=== PATIENT | female | born 1945 | race African-American/Black ===

== ENCOUNTER 2017-02-21 22:22 | Inpatient (IN) | payer MEDICARE, BC ==
[~2017-02-21] VITALS: Ht 160 cm; Wt 65.1 kg
[~2017-02-21 22:22] MED LIST: AMLO5TAB2 PO; ASPI81TA44 PO; ATEN25TA PO; Aspirin PO; B CO1TAB30 PO; CALC300T5 PO; CALC667C6 PO; CIPR250T30 PO; CRESTOR5 MG PO; DARB60DI SQ; DICL112S2 TP; FERR325T3 PO; FLUC100T4 PO; FOLI0.8T32 PO; FURO-68 PO; GABA-585 PO; HEPA1000 IJ; HYDR-2678 PO; HYDR100T24 PO; HYDR20VI5 IJ; HYDR500C PO; HYDR500C3 PO; INSU100V10 IJ; LEVO100T5 PO; LEVO150T PO; LEVO150T5 PO; LEVO25TA2 PO; URSO300C3 PO
--- NOTE | 2017-02-21 22:46 | PHYS DOC ---
Past Medical History Past Medical History: CVA, Diabetes-Type II, High Cholesterol, Hypertension, Renal Failure, Sinusitis Past Surgical History: Cholecystectomy, Hysterectomy Additional Past Surgical Histo: Dialysis Right chest Alcohol Use: None Drug Use: None Adult General Chief Complaint Chief Complaint: FATIGUE HPI HPI Patient is a 71 year old female who presents with complaint of headache and generalized weakness. The patient states that her symptoms started shortly after dialysis. Patient states that she has history of end-stage renal disease and has dialysis on Thursday, , and Thursday. Patient received her fall treatment with dialysis. Patient states that towards the end of dialysis she started to get fever and she was also noted to have a drop in her blood pressure. Patient states that currently her headache has improved but she is still feeling generalized weakness. Patient denies any fever, chest pain, shortness of breath, productive cough. Patient states that she is having dull abdominal pain which she states she has had before after dialysis. Review of Systems Review of Systems Constitutional: Denies fever or chills [] Eyes: Denies change in visual acuity, redness, or eye pain [] HENT: Denies nasal congestion or sore throat [] Respiratory: Denies cough or shortness of breath [] Cardiovascular: Denies chest pain or edema [] GI: Abdominal pain, nausea, denies vomiting, bloody stools or diarrhea [] : Denies dysuria or hematuria [] Musculoskeletal: Myalgia [] Integument: Denies rash or skin lesions [] Neurologic: Headache, denies focal weakness or sensory changes [] Current Medications Current Medications Current Medications Medications (Trade) Dose Ordered Sig/[facility] Start Time Stop Time Status Last Admin Dose Admin Acetaminophen (Tylenol) 650 mg 1X ONCE 02/21/17 23:00 02/21/17 23:01 DC 02/21/17 23:00 650 MG Ondansetron HCl (Zofran) 4 mg 1X ONCE 02/21/17 23:00 02/21/17 23:01 DC 02/21/17 22:59 4 MG Sodium Chloride (Iv Sodium Chloride 0.9% 500ml Bag) 250 ml @ 500 mls/hr 1X ONCE 02/21/17 23:00 02/21/17 23:29 02/21/17 22:53 500 MLS/HR Allergies Allergies Allergies Coded Allergies Type Severity Reaction Last Updated Verified Penicillins Allergy Intermediate SEVERE ITCHING-NO HIVES 08/25/16 No Sulfa (Sulfonamide Antibiotics) Allergy Intermediate 08/25/16 Yes Uncoded Allergies Type Severity Reaction Last Updated Verified surgical silvia Allergy Intermediate Rash 10/14/15 Physical Exam Physical Exam Constitutional: Alert, afebrile, appears in mild to moderate discomfort. [] HENT: Normocephalic, atraumatic, bilateral external ears normal, oropharynx moist, no oral exudates, nose normal. [] Eyes: PERRLA, EOMI, conjunctiva normal, no discharge. [] Neck: Normal range of motion, no tenderness, supple, no stridor. [] Cardiovascular:Heart rate regular rhythm, no murmur [] Lungs & Thorax: Bilateral breath sounds clear to auscultation [] Abdomen: Bowel sounds normal, soft, no tenderness, no masses, no pulsatile masses. [] Skin: Warm, dry, no erythema, no rash. [] Back: No tenderness, no CVA tenderness. [] Extremities: No tenderness, no cyanosis, no clubbing, ROM intact, no edema. [] Neurologic: Alert and oriented X 3, normal motor function, normal sensory function, no focal deficits noted. [] Current Patient Data Vital Signs Vital Signs Date Time Temp Pulse Resp B/P Pulse Ox O2 Delivery O2 Flow Rate FiO2 02/21/17 23:01 85 16 100/53 98 Room Air 02/21/17 22:30 97.5 97.5 Lab Values Laboratory Tests Test 02/21/17 22:34 White Blood Count 9.5x10^3/uL (4.0-11.0) Red Blood Count 3.60x10^6/uL (3.50-5.40) Hemoglobin 12.2g/dL (12.0-15.5) Hematocrit 38.3% (36.0-47.0) Mean Corpuscular Volume 107fL (79-100) H Mean Corpuscular Hemoglobin 34pg (25-35) Mean Corpuscular Hemoglobin Concent 32g/dL (31-37) Red Cell Distribution Width 15.4% (11.5-14.5) H Platelet Count 436x10^3/uL (140-400) H Neutrophils (%) (Auto) 69% (31-73) Lymphocytes (%) (Auto) 17% (24-48) L Monocytes (%) (Auto) 8% (0-9) Eosinophils (%) (Auto) 6% (0-3) H Basophils (%) (Auto) 1% (0-3) Neutrophils # (Auto) 6.6x10^3uL (1.8-7.7) Lymphocytes # (Auto) 1.6x10^3/uL (1.0-4.8) Monocytes # (Auto) 0.7x10^3/uL (0.0-1.1) Eosinophils # (Auto) 0.6x10^3/uL (0.0-0.7) Basophils # (Auto) 0.1x10^3/uL (0.0-0.2) Sodium Level 132mmol/L (136-145) L Potassium Level 3.1mmol/L (3.5-5.1) L Chloride Level 93mmol/L (98-107) L Carbon Dioxide Level 24mmol/L (21-32) Anion Gap 15 (6-14) H Blood Urea Nitrogen 25mg/dL (7-20) H Creatinine 4.0mg/dL (0.6-1.0) H Estimated GFR (Cockcroft-Gault) 13.3 BUN/Creatinine Ratio 6 (6-20) Glucose Level 161mg/dL (70-99) H Calcium Level 8.3mg/dL (8.5-10.1) L Magnesium Level 1.7mg/dL (1.8-2.4) L Total Bilirubin 0.6mg/dL (0.2-1.0) Aspartate Amino Transferase (AST) 17U/L (15-37) Alanine Aminotransferase (ALT) 9U/L (14-59) L Alkaline Phosphatase 76U/L (46-116) Total Protein 7.4g/dL (6.4-8.2) Albumin 3.5g/dL (3.4-5.0) Albumin/Globulin Ratio 0.9 (1.0-1.7) L Laboratory Tests 02/21/17 22:34 Laboratory Tests 02/21/17 22:34 EKG EKG Interpreted by me: Heart rate 90, sinus rhythm, right bundle branch block, no acute ST/T-wave abnormalities present [] Radiology/Procedures Radiology/Procedures Not performed [] Course & Med Decision Making Course & Med Decision Making Pertinent Labs and Imaging studies reviewed. (See chart for details) The patient was given 250 mL of IV normal saline. Patient's lab work unremarkable at this time. Patient's symptoms likely due to dehydration secondary to dialysis. I recommended that the patient contact her screwmaker automatic, Dr. Botello, on Thursday as patient has been having multiple episodes of similar symptoms during and after dialysis. Recommended that the patient return to emergency department for any worsening symptoms. Patient was understanding and in agreement with treatment plan. Dragon Disclaimer Dragon Disclaimer This electronic medical record was generated, in whole or in part, using a voice recognition dictation system. Departure Departure Impression: Primary Impression: Dehydration Additional Impression: ESRD (end stage renal disease) on dialysis Disposition: HOME, SELF-CARE Condition: IMPROVED Referrals: EVER GARNER MD (PCP) Patient Instructions: Dehydration, Adult Additional Instructions: Call your screwmaker automatic, Dr. Botello, in 2 days to discuss your dialysis regimen. Return to the emergency department for any worsening symptoms. Problem Qualifiers SUZE YBARRA MD Feb 21, 2017 22:46
[2017-02-21 23:00] LABS: BASO # 0.1 x10^3/uL (0.0-0.2); BASO % 1 % (0-3); EOS % 6 % (0-3); HEMATOCRIT 38.3 % (36.0-47.0); HEMOGLOBIN 12.2 g/dL (12.0-15.5); LYMPH # 1.6 x10^3/uL (1.0-4.8); LYMPH % 17 % (24-48); MEAN CORPUSCULAR HEMOGLOBIN 34 pg (25-35); MEAN CORPUSCULAR HGB CONC 32 g/dL (31-37); MEAN CORPUSCULAR VOLUME 107 fL (79-100); MONO % 8 % (0-9); NEUT % 69 % (31-73); PLATELET COUNT 436 x10^3/uL (140-400); RED CELL DISTRIBUTION WIDTH 15.4 % (11.5-14.5); WHITE BLOOD COUNT 9.5 x10^3/uL (4.0-11.0)
[2017-02-21] MEDS ORDERED: ACETAMINOPHEN 325 MG TABLET. PO ONE (23:00)
[2017-02-21] MEDS ORDERED: ONDANSETRON PF 4 MG/2 ML VIAL. IV ONE (23:00)
[2017-02-21] MEDS ORDERED: IV NORMAL SALINE 500ML BAG 250 ML IV ONE (23:00)
[2017-02-21 23:11] LABS: CALCIUM 8.3 mg/dL (8.5-10.1); GFR 13.3; POTASSIUM 3.1 mmol/L (3.5-5.1)
[2017-02-21 23:16] LABS: ALBUMIN 3.5 g/dL (3.4-5.0); ALBUMIN/GLOBULIN RATIO 0.9 (1.0-1.7); MAGNESIUM 1.7 mg/dL (1.8-2.4); TOTAL BILIRUBIN 0.6 mg/dL (0.2-1.0); TOTAL PROTEIN 7.4 g/dL (6.4-8.2)
[2017-02-22] VITALS (8 sets, daily range): BP systolic 89–113; BP diastolic 40–55
[2017-02-22 00:04] LABS: PLT ESTIMATE INCREASED (ADEQUATE)
[2017-02-22] MEDS ORDERED: IV NORMAL SALINE 500ML BAG 250 ML IV ONE (00:15)
--- NOTE | 2017-02-22 00:23 | ACF ---
Admit Criteria Forms Admit Criteria Forms Admit Criteria Forms RENAL FAILURE, CHRONIC Clinical Indications for Admission to Inpatient Care (Place 'X' for any and all applicable criteria): Admission is indicated for ANY ONE of the following (1)(2)(3)(4)(5): [X]I. Inpatient admission required rather than observation care (Use Renal Failure, Chronic: Observation Care Criteria as appropriate) because of ANY ONE of the following: [ ]a) Volume overload or uremic symptoms (eg, clinically significant pulmonary edema, hypertension, pericarditis, acidosis) too severe for, or not responsive (eg, for over 24 hours) to emergency department or observation care dialysis or treatment regimen (11) [X]b) Hemodynamic instability that is severe or persistent [ ]c) Respiratory distress that is severe or persistent (11) [ ]d) Clinically significant electrolyte abnormality that requires inpatient care (eg,hyperkalemia with severe ECG findings)[B] [ ]e) Supplement O2 or respiratory therapy for over 24hrs that is performable only in acute inpatient setting [ ]f) Continuous IV infusion of anticoagulation, platelet inhibitor, vasoactive, or Antiarrhythmic medication (15), [ ]g) Pulmonary artery catheter monitoring [ ]h) Temporary pacemaker placement [ ]i) Emergent pericardiocentesis [ ]j) Other condition, treatment or monitoring requiring inpatient admission [ ]II. Unexplained syncope [A] [ ]III. Recurrent seizures [ ]IV. Severe infections not treatable in outpatient setting (eg, peritonitis)(9 ) [ ]V. Cardiac arrhythmias of immediate concern [ ]. Encephalopathy [ ]VII.Bleeding abnormalities (eg, platelet dysfunction) with active (eg, gastrointestinal) bleeding Extended stay beyond goal length of stay may be needed for (3)(4)(35)(36): [ ]a) Continuing uremic complications [ ]b) Comorbidities or complications The original [employer] content created by [employer] has been revised. The portions of the content which have been revised are identified through the use of italic text or in bold, and [facility] [employer] has neither reviewed nor approved the modified material. All other unmodified content is copyright [employer]. Please see references footnoted in the original [employer] edition 2016 BALWINDER COX Feb 22, 2017 00:23
[2017-02-22] MEDS ORDERED: FENTANYL PF 100 MCG/2 ML VIAL. IV PRN (00:30)
[2017-02-22] MEDS ORDERED: ACETAMINOPHEN 325 MG TABLET. PO PRN (00:30)
[2017-02-22] MEDS: ONDANSETRON PF 4 MG/2 ML VIAL. IV PRN ×2 (01:54→09:39)
[2017-02-22] MEDS: IV NORMAL SALINE 1000ML BAG 1,000 ML IV SCH ×2 (01:55→16:11)
[2017-02-22] MEDS ORDERED: HYDR500C3 PO (04:13)
[2017-02-22] MEDS ORDERED: IV NORMAL SALINE 250ML 250 ML IV ONE (08:15)
[2017-02-22] MEDS ORDERED: HYDROXYUREA 500 MG CAPSULE PO SCH (09:00)
[2017-02-22] MEDS: FOLIC/VIT B COMP W-C (RENAL) TABLET. PO SCH (09:37)
[2017-02-22] MEDS: ASPIRIN 81 MG TAB.CHEW PO SCH (09:38)
--- NOTE | 2017-02-22 10:08 | PDOC ---
Provider Note Provider Note Patient seen. History and Physical dictated. See dictation# [id number] SAVANA MILLAN MD Feb 22, 2017 10:08
--- NOTE | 2017-02-22 11:27 | EKG ---
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
--- NOTE | 2017-02-22 11:30 | HP ---
ADMIT DATE: ADMITTING PHYSICIAN: Dr. Gio Up. REASON FOR ADMISSION: Headaches, dizziness, nausea and weakness. HISTORY OF PRESENT ILLNESS: This is a 71-year-old -[place] female, who is on hemodialysis Thursday, and Thursday, has been recently having problems with dizziness and low blood pressure with dialysis. Sometimes, they have given her fluids. She was also supposed to see a global analytics head as an outpatient. Yesterday, her symptoms got worse, she came to the Emergency Room. In the Emergency Room, blood pressure was initially 100/53 and she was given IV fluids. Subsequently, her blood pressure dropped in 60s systolic and she required admission with continuation of IV normal saline. REVIEW OF SYSTEMS: At present time, the patient is also complaining of nausea. She has occasional cough and congestion. She denies any fever, chills, diarrhea or constipation. She has increased weakness and dizziness, especially with dialysis. She states that even on nondialysis days, she has some dizziness and low blood pressure at times, but with the dialysis and gets much worse. Other systems reviewed and are negative. She denies any fevers, chills, dysuria, diarrhea or swelling of the legs at this time. Other systems reviewed and are negative. She does admit to nausea, no vomiting. She gets dry heaves. PAST MEDICAL HISTORY: The patient has history of old cerebrovascular accident, diabetes mellitus type 2, hypertension, hyperlipidemia, end-stage renal disease on hemodialysis, history of thrombocytosis and she is on Hydrea for the same. PAST SURGICAL HISTORY: She had hysterectomy and gallbladder surgery. She also has ____ procedures for dialysis. She also had angioplasty and stent placement in the left leg for peripheral vascular disease. MEDICATIONS: Reviewed, please refer to the orders. ALLERGIES: THE PATIENT IS ALLERGIC TO PENICILLIN, SULFA AND SURGICAL SARAH BETH. SOCIAL HISTORY: History of smoking in the past. She has not been smoking recently. No history of alcoholism or drug abuse. She lives with her family. FAMILY HISTORY: Positive for diabetes, hypertension, heart disease, strokes and also kidney problems. PHYSICAL EXAMINATION: VITAL SIGNS: Blood pressure 89/43 mmHg, temperature 98.4, pulse 79 per minute, respirations 18 per minute. GENERAL: The patient is alert, oriented, not in any acute distress. She appears to be chronically ill. EYES: Pupils reacting to light. Conjunctivae pale. Sclerae muddy. HENT: Mild congestion of throat. SKIN: Warm and dry. There is no cyanosis. NECK: Supple. JVP normal. No thyromegaly. Trachea midline. LUNGS: Decreased breath sounds at bases. No rales. CARDIOVASCULAR: S1, S2 regular. ABDOMEN: Soft, nontender, no guarding, no rigidity. Bowel sounds present. The patient is having dry heaves. EXTREMITIES: No edema. CENTRAL NERVOUS SYSTEM: Generalized weakness. LABORATORY FINDINGS: WBC count 9.5, hemoglobin 12.2, platelet count is 436,000. Sodium 132, potassium 3.1, BUN 25, creatinine 4.0. Glucose 161, magnesium 1.7, albumin 3.5. IMPRESSION: 1. Acute hypotension. 2. End-stage renal disease, on hemodialysis. 3. Diabetes mellitus type 2. 4. Nausea. 5. Hypertension. 6. Thrombocytosis. 7. Hyperlipidemia. PLAN: I will give her extra IV fluids this morning in addition to the continuing of IV drip, because of recurrent hypotension. Consultation has been obtained with Dr. Martinez for nephrology evaluation and management. Consultation has also been obtained with Dr. Parmar for persistent hypotension. I will hold her blood pressure medications including amlodipine and hydralazine. Continue other medications. We will verify the dose of Hydrea. For details, please refer to the orders. SAVANA MILLAN MD DR: AFSHIN/kimberli JOB#: [id number] / [id number]
[2017-02-22] MEDS: LEVOTHYROXINE 150 MCG TABLET PO SCH (11:33)
--- NOTE | 2017-02-22 11:44 | RAD ---
Indication cough. PA and lateral views of the chest were obtained and are compared to a single view examination 04/06/2015. The heart and pulmonary vessels appear normal. The lungs are clear. There is no pleural fluid or pneumothorax. IMPRESSION: No acute or focal process is seen in the chest
--- NOTE | 2017-02-22 13:30 | CONS ---
DATE OF CONSULTATION: 02/22/2017 REASON FOR CONSULTATION: Hypotension. HISTORY OF PRESENT ILLNESS: The patient is a pleasant 71-year-old woman with a past medical history as noted below, who presents to the hospital in the setting of hypotension. She reports that over the course of the last 3 months or so, she has had hypotension on dialysis and has struggled with maintaining her dialysis runs. She denies any associated chest pain, but does report that in the last 2-4 weeks or so, she has had some exertional dyspnea. She denies any syncope or palpitations. Upon arrival to the ER from her dialysis session, her blood pressures were 60s/40s and she was given intravenous fluids. In speaking with the patient, she reports that over the course of the last 2 years or so, she has lost approximately 150 pounds after a thyroid surgery. She also has had decreased appetite and has not been eating and drinking well. She denies any prior cardiovascular history and remotely thinks that she had a normal cardiac stress test. PAST MEDICAL HISTORY: 1. End-stage renal disease ____ 2013. 2. Hypertension in the past. 3. Dyslipidemia. 4. Peripheral vascular disease, status post left lower extremity re-vascularization via a bypass surgery. CARDIOVASCULAR MEDICATIONS: At home: 1. Amlodipine 5 mg daily. 2. Hydralazine 200 mg daily. ALLERGIES: PENICILLIN, SULFA, AND SURGICAL SARAH BETH. SOCIAL HISTORY: The patient denies any alcohol, tobacco, or illicit drug use. REVIEW OF SYSTEMS: Negative for 10 out of 14 systems reviewed, unless otherwise mentioned above in HPI. PHYSICAL EXAMINATION: VITAL SIGNS: Afebrile, heart rate 83, respiratory rate 18, blood pressure 104/41, and pulse ox 100% on room air. GENERAL: She is alert and oriented, in no acute distress. HEAD AND NECK: Unremarkable. HEART: Regular rate and rhythm without any murmurs, rubs, or gallops. LUNGS: Clear to auscultation bilaterally, anteriorly and posteriorly. ABDOMEN: Soft, nontender, and nondistended. EXTREMITIES: No clubbing, cyanosis, or edema. A 2+ radial and dorsalis pedis pulses. NEUROLOGIC: No focal deficits. PSYCHIATRIC: Normal mood and affect. DIAGNOSTIC STUDIES: Labs: Hemoglobin 12.2, platelets 436, BUN 25, potassium 3.1, and cardiac enzymes negative x 2. Chest x-ray is unremarkable. Echocardiogram from 2 years ago reveals normal LV systolic function. No significant valvular heart disease noted. IMPRESSION: 1. Hypotension, likely resultant due to weight loss of over 100 pounds and poor appetite. 2. End-stage renal disease. 3. Diabetes and dyslipidemia. RECOMMENDATIONS: 1. Agree with discontinuation of current antihypertensives. Suspect that she may ultimately need some antihypertensives on non-dialysis days when her appetite returns. 2. We will obtain an echocardiogram as already ordered by Dr. Botello. From a cardiovascular standpoint, we will continue supportive care. No clear indication of angina at this time, and we will plan for perhaps an outpatient stress test given her recent dyspnea. If her echocardiogram demonstrates any significant abnormalities, then we will consider inpatient stress testing. Thank you for this consultation. SANDEE BRASWELL MD DR: AMADEO/kimberli JOB#: [id number] / [id number] PAULINE
--- NOTE | 2017-02-22 21:42 | PDOC2 ---
CONSULT Date of Consult Date of Consult DATE: 02/22/17 TIME: 21:40 Past Medical History Cardiovascular: HTN, Hyperlipidemia CENTRAL NERVOUS SYSTEM: CVA Heme/Onc: Anemia NOS Renal/: Chronic renal failure Endocrine: Diabetes Past Surgical History Past Surgical History: Cholecystectomy, Hysterectomy, Other Social History ALCOHOL: none Lives: with Family Current Problem List Problem List Problems Medical Problems: (1) Dehydration Status: Acute (2) ESRD (end stage renal disease) on dialysis Status: Acute (3) Hypotension Status: Acute Current Medications Current Medications Current Medications Sodium Chloride (Iv Sodium Chloride 0.9% 500ml Bag) 250 ml @ 500 mls/hr 1X ONCE IV Last administered on 02/21/17 22:53; Start 02/21/17 at 23:00; Stop at 23:29; Status DC Ondansetron HCl (Zofran) 4 mg 1X ONCE IV Last administered on 02/21/17 22:59 ; Start 02/21/17 at 23:00; Stop 02/21/17 at 23:01; Status DC Acetaminophen 650 mg 650 mg 1X ONCE PO Last administered on 02/21/17 23:00; Start 02/21/17 at 23:00; Stop 02/21/17 at 23:01; Status DC Sodium Chloride (Iv Sodium Chloride 0.9% 500ml Bag) 250 ml @ 500 mls/hr 1X ONCE IV Last administered on 02/22/17 00:05; Start 02/22/17 at 00:15; Stop at 00:44; Status DC Ondansetron HCl (Zofran) 4 mg PRN Q8HRS PRN IV NAUSEA/VOMITING Last administered on 02/22/17 09:39; Start 02/22/17 at 00:30; Stop 02/23/17 at 00:29 Fentanyl Citrate 50 mcg 50 mcg PRN Q2HR PRN IV PAIN; Start 02/22/17 at 00:30; Stop 02/23/17 at 00:29 Sodium Chloride (Iv Sodium Chloride 0.9% 1000ml Bag) 1,000 ml @ 60 mls/hr [id number] IV Last administered on 02/22/17 16:11; Start 02/22/17 at 00:30; Stop 02/23/17 at 00:29 Acetaminophen 650 mg 650 mg PRN Q4HRS PRN PO FEVER; Start 02/22/17 at 00:30; Stop 02/23/17 at 00:29 Sodium Chloride (Iv Sodium Chloride 0.9% 250ml) 250 ml @ 250 mls/hr 1X ONCE IV Last administered on 02/22/17 08:15; Start 02/22/17 at 08:15; Stop at 09:14; Status DC Aspirin (Children'S Aspirin) 81 mg DAILY08 PO Last administered on 02/22/17 09 :38; Start 02/22/17 at 09:00 Vitamin B Complex/ Vitamin C (Nephro-Jose) 1 tab DAILY PO Last administered on 02/22/17 09:37; Start 02/22/17 at 09:00 Hydroxyurea (Hydrea) 1,000 mg DAILY PO Last administered on 02/22/17 09:47; Start 02/22/17 at 09:00; Stop 02/22/17 at 11:18; Status DC Levothyroxine Sodium (Synthroid) 150 mcg DAILYAC PO Last administered on 11:33; Start 02/22/17 at 10:30 Hydroxyurea (Hydrea) 500 mg SuMoWeFr PO ; Start 02/23/17 at 09:00 Hydroxyurea (Hydrea) 1,000 mg QTUTHSA@09 PO ; Start 02/24/17 at 09:00 Hydroxyurea (Hydrea) 500 mg QSU@09 PO ; Start 03/01/17 at 09:00; Stop 03/01/17 at 09:00; Status DC Active Scripts Active Reported Hydroxyurea 500 Mg Capsule 1,000 Mg PO Hydroxyurea 500 Mg Capsule 500 Mg PO Hydralazine Hcl 100 Mg Tablet 200 Mg PO DAILY Tums (Calcium Carbonate) 300 Mg Tab.chew 300 Mg PO Children's Aspirin (Aspirin) 81 Mg Tab.chew 81 Mg PO Renal-Jose Tablet (Folic Acid/Vit Bcomp,C) 0.8 Mg Tablet 0.8 Mg PO Levothyroxine Sodium 150 Mcg Tablet 150 Mcg PO DAILYAC Amlodipine Besylate 5 Mg Tablet 5 Mg PO DAILY Allergies Allergies: Coded Allergies: Penicillins (Verified Allergy, Intermediate, SEVERE ITCHING-NO HIVES, 02/22) Can tolerate cefepime Sulfa (Sulfonamide Antibiotics) (Verified Allergy, Intermediate, 08/25/16) Uncoded Allergies: surgical silvia (Allergy, Intermediate, Rash, 10/14/15) rash Vitals VITALS Vital Signs Date Time Temp Pulse Resp B/P Pulse Ox O2 Delivery O2 Flow Rate FiO2 02/22/17 20:00 Room Air 02/22/17 19:05 97.8 83 18 98/50 97 97.8 Labs Labs Laboratory Tests Test 02/21/17 22:34 02/22/17 00:25 02/22/17 05:40 02/22/17 11:56 White Blood Count 9.5x10^3/uL (4.0-11.0) Red Blood Count 3.60x10^6/uL (3.50-5.40) Hemoglobin 12.2g/dL (12.0-15.5) Hematocrit 38.3% (36.0-47.0) Mean Corpuscular Volume 107fL (79-100) Mean Corpuscular Hemoglobin 34pg (25-35) Mean Corpuscular Hemoglobin Concent 32g/dL (31-37) Red Cell Distribution Width 15.4% (11.5-14.5) Platelet Count 436x10^3/uL (140-400) Neutrophils (%) (Auto) 69% (31-73) Lymphocytes (%) (Auto) 17% (24-48) Monocytes (%) (Auto) 8% (0-9) Eosinophils (%) (Auto) 6% (0-3) Basophils (%) (Auto) 1% (0-3) Neutrophils # (Auto) 6.6x10^3uL (1.8-7.7) Lymphocytes # (Auto) 1.6x10^3/uL (1.0-4.8) Monocytes # (Auto) 0.7x10^3/uL (0.0-1.1) Eosinophils # (Auto) 0.6x10^3/uL (0.0-0.7) Basophils # (Auto) 0.1x10^3/uL (0.0-0.2) Platelet Estimate Increased (ADEQUATE) Large Platelets Few Giant Platelets Few Macrocytosis Slight Sodium Level 132mmol/L (136-145) Potassium Level 3.1mmol/L (3.5-5.1) Chloride Level 93mmol/L (98-107) Carbon Dioxide Level 24mmol/L (21-32) Anion Gap 15 (6-14) Blood Urea Nitrogen 25mg/dL (7-20) Creatinine 4.0mg/dL (0.6-1.0) Estimated GFR (Cockcroft-Gault) 13.3 BUN/Creatinine Ratio 6 (6-20) Glucose Level 161mg/dL (70-99) Calcium Level 8.3mg/dL (8.5-10.1) Magnesium Level 1.7mg/dL (1.8-2.4) Total Bilirubin 0.6mg/dL (0.2-1.0) Aspartate Amino Transf (AST/SGOT) 17U/L (15-37) Alanine Aminotransferase (ALT/SGPT) 9U/L (14-59) Alkaline Phosphatase 76U/L (46-116) Total Protein 7.4g/dL (6.4-8.2) Albumin 3.5g/dL (3.4-5.0) Albumin/Globulin Ratio 0.9 (1.0-1.7) Troponin I Quantitative < 0.017ng/mL (0.000-0.055) < 0.017ng/mL (0.000-0.055) Glucose (Fingerstick) 111mg/dL (70-99) Test 02/22/17 12:30 02/22/17 17:05 Troponin I Quantitative < 0.017ng/mL (0.000-0.055) Glucose (Fingerstick) 85mg/dL (70-99) Laboratory Tests Test 02/21/17 22:34 02/22/17 00:25 02/22/17 05:40 02/22/17 11:56 White Blood Count 9.5x10^3/uL (4.0-11.0) Red Blood Count 3.60x10^6/uL (3.50-5.40) Hemoglobin 12.2g/dL (12.0-15.5) Hematocrit 38.3% (36.0-47.0) Mean Corpuscular Volume 107fL (79-100) Mean Corpuscular Hemoglobin 34pg (25-35) Mean Corpuscular Hemoglobin Concent 32g/dL (31-37) Red Cell Distribution Width 15.4% (11.5-14.5) Platelet Count 436x10^3/uL (140-400) Neutrophils (%) (Auto) 69% (31-73) Lymphocytes (%) (Auto) 17% (24-48) Monocytes (%) (Auto) 8% (0-9) Eosinophils (%) (Auto) 6% (0-3) Basophils (%) (Auto) 1% (0-3) Neutrophils # (Auto) 6.6x10^3uL (1.8-7.7) Lymphocytes # (Auto) 1.6x10^3/uL (1.0-4.8) Monocytes # (Auto) 0.7x10^3/uL (0.0-1.1) Eosinophils # (Auto) 0.6x10^3/uL (0.0-0.7) Basophils # (Auto) 0.1x10^3/uL (0.0-0.2) Platelet Estimate Increased (ADEQUATE) Large Platelets Few Giant Platelets Few Macrocytosis Slight Sodium Level 132mmol/L (136-145) Potassium Level 3.1mmol/L (3.5-5.1) Chloride Level 93mmol/L (98-107) Carbon Dioxide Level 24mmol/L (21-32) Anion Gap 15 (6-14) Blood Urea Nitrogen 25mg/dL (7-20) Creatinine 4.0mg/dL (0.6-1.0) Estimated GFR (Cockcroft-Gault) 13.3 BUN/Creatinine Ratio 6 (6-20) Glucose Level 161mg/dL (70-99) Calcium Level 8.3mg/dL (8.5-10.1) Magnesium Level 1.7mg/dL (1.8-2.4) Total Bilirubin 0.6mg/dL (0.2-1.0) Aspartate Amino Transf (AST/SGOT) 17U/L (15-37) Alanine Aminotransferase (ALT/SGPT) 9U/L (14-59) Alkaline Phosphatase 76U/L (46-116) Total Protein 7.4g/dL (6.4-8.2) Albumin 3.5g/dL (3.4-5.0) Albumin/Globulin Ratio 0.9 (1.0-1.7) Troponin I Quantitative < 0.017ng/mL (0.000-0.055) < 0.017ng/mL (0.000-0.055) Glucose (Fingerstick) 111mg/dL (70-99) Test 02/22/17 12:30 02/22/17 17:05 Troponin I Quantitative < 0.017ng/mL (0.000-0.055) Glucose (Fingerstick) 85mg/dL (70-99) Assessment/Plan Assessment/Plan RENAL CONSULT / DAQUAN Dictated. ESRD HYPOTENSION WEAKNESS> ECHO Cardiology eval. ? adrenal issues. Check Cortisol levels. MIDODRINE. Adjust HD time and dr weight. HD per schedule TTS. Thank you. BEN BUTT MD Feb 22, 2017 21:42
[2017-02-23 02:45] VITALS: BP 102/51
[2017-02-23 04:18] LABS: BASO # 0.1 x10^3/uL (0.0-0.2); BASO % 1 % (0-3); EOS % 8 % (0-3); HEMATOCRIT 31.3 % (36.0-47.0); HEMOGLOBIN 10.1 g/dL (12.0-15.5); LYMPH # 2.3 x10^3/uL (1.0-4.8); LYMPH % 28 % (24-48); MEAN CORPUSCULAR HEMOGLOBIN 34 pg (25-35); MEAN CORPUSCULAR HGB CONC 32 g/dL (31-37); MEAN CORPUSCULAR VOLUME 106 fL (79-100); MONO % 6 % (0-9); NEUT % 57 % (31-73); PLATELET COUNT 359 x10^3/uL (140-400); RED BLOOD COUNT 2.97 x10^6/uL (3.50-5.40); RED CELL DISTRIBUTION WIDTH 15.7 % (11.5-14.5); WHITE BLOOD COUNT 8.3 x10^3/uL (4.0-11.0)
[2017-02-23 04:46] LABS: ALBUMIN 2.5 g/dL (3.4-5.0); ALBUMIN/GLOBULIN RATIO 0.8 (1.0-1.7); CALCIUM 7.2 mg/dL (8.5-10.1); CREATININE 6.2 mg/dL (0.6-1.0); TOTAL BILIRUBIN 0.4 mg/dL (0.2-1.0); TOTAL PROTEIN 5.7 g/dL (6.4-8.2)
[2017-02-23] MEDS: LEVOTHYROXINE 150 MCG TABLET PO SCH (06:37)
[2017-02-23] MEDS ORDERED: MIDODRINE 2.5 MG TABLET PO SCH (07:00)
[2017-02-23 07:15] VITALS: BP 123/53
[2017-02-23] MEDS: ASPIRIN 81 MG TAB.CHEW PO SCH (07:42)
[2017-02-23] MEDS: FOLIC/VIT B COMP W-C (RENAL) TABLET. PO SCH (07:42)
[2017-02-23] MEDS ORDERED: HYDROXYUREA 500 MG CAPSULE PO SCH (09:00)
--- NOTE | 2017-02-23 10:08 | PDOC ---
PROGRESS NOTES Subjective Subjective pt feeling better Objective Objective Vital Signs Date Time Temp Pulse Resp B/P Pulse Ox O2 Delivery O2 Flow Rate FiO2 02/23/17 08:00 Room Air 02/23/17 07:15 97.5 81 18 123/53 99 97.5 Intake and Output 02/23/17 07:00 Intake Total 2630 ml Balance 2630 ml Intake Oral 2630 ml # Voids 4 Physical Exam Abdomen: Normal bowel sounds, Soft Heart: Regular rate, Normal S1, Normal S2 Extremities: No edema General: Oriented X3 HEENT: Atraumatic Lungs: Clear to auscultation MUSCULOSKELETAL: No deformity, No swelling Neck: Supple Neuro: Normal speech Psych/Mental Status: Mood NL Skin: No rashes Diagnosis Problem List Problems Medical Problems: (1) Dehydration Status: Acute (2) ESRD (end stage renal disease) on dialysis Status: Acute (3) Hypotension Status: Acute Assessment Assessment Problems Medical Problems: (1) Dehydration Status: Acute (2) ESRD (end stage renal disease) on dialysis Status: Acute (3) Hypotension Status: Acute IMPRESSION: 1. Acute hypotension resolved. 2. End-stage renal disease, on hemodialysis. 3. Diabetes mellitus type 2. 4. Nausea. 5. Hypertension. 6. Thrombocytosis. 7. Hyperlipidemia. PLAN: d/c iv fluids echo today ?stress test. pt/rehab. labs reviewed ,ok. I will give her extra IV fluids this morning in addition to the continuing of IV drip, because of recurrent hypotension. Consultation has been obtained with Dr. Martinez for nephrology evaluation and management. Consultation has also been obtained with Dr. Parmar for persistent hypotension. I will hold her blood pressure medications including amlodipine and hydralazine. Continue other medications. We will verify the dose of Hydrea. For details, please refer to the orders. Problems: Plan Plan of Care Problems Medical Problems: (1) Dehydration Status: Acute (2) ESRD (end stage renal disease) on dialysis Status: Acute (3) Hypotension Status: Acute Comment Review of Relevant I have reviewed the following items stormy (where applicable) has been applied. Labs Laboratory Tests Test 02/22/17 11:56 02/22/17 12:30 02/22/17 17:05 02/23/17 02:55 Glucose (Fingerstick) 111mg/dL (70-99) 85mg/dL (70-99) Troponin I Quantitative < 0.017ng/mL (0.000-0.055) White Blood Count 8.3x10^3/uL (4.0-11.0) Red Blood Count 2.97x10^6/uL (3.50-5.40) Hemoglobin 10.1g/dL (12.0-15.5) Hematocrit 31.3% (36.0-47.0) Mean Corpuscular Volume 106fL (79-100) Mean Corpuscular Hemoglobin 34pg (25-35) Mean Corpuscular Hemoglobin Concent 32g/dL (31-37) Red Cell Distribution Width 15.7% (11.5-14.5) Platelet Count 359x10^3/uL (140-400) Neutrophils (%) (Auto) 57% (31-73) Lymphocytes (%) (Auto) 28% (24-48) Monocytes (%) (Auto) 6% (0-9) Eosinophils (%) (Auto) 8% (0-3) Basophils (%) (Auto) 1% (0-3) Neutrophils # (Auto) 4.7x10^3uL (1.8-7.7) Lymphocytes # (Auto) 2.3x10^3/uL (1.0-4.8) Monocytes # (Auto) 0.5x10^3/uL (0.0-1.1) Eosinophils # (Auto) 0.7x10^3/uL (0.0-0.7) Basophils # (Auto) 0.1x10^3/uL (0.0-0.2) Sodium Level 138mmol/L (136-145) Potassium Level 4.0mmol/L (3.5-5.1) Chloride Level 102mmol/L (98-107) Carbon Dioxide Level 23mmol/L (21-32) Anion Gap 13 (6-14) Blood Urea Nitrogen 41mg/dL (7-20) Creatinine 6.2mg/dL (0.6-1.0) Estimated GFR (Cockcroft-Gault) 8.0 BUN/Creatinine Ratio 7 (6-20) Glucose Level 74mg/dL (70-99) Calcium Level 7.2mg/dL (8.5-10.1) Total Bilirubin 0.4mg/dL (0.2-1.0) Aspartate Amino Transf (AST/SGOT) 15U/L (15-37) Alanine Aminotransferase (ALT/SGPT) 9U/L (14-59) Alkaline Phosphatase 54U/L (46-116) Total Protein 5.7g/dL (6.4-8.2) Albumin 2.5g/dL (3.4-5.0) Albumin/Globulin Ratio 0.8 (1.0-1.7) Medications Current Medications Hydroxyurea (Hydrea) 500 mg QSU@09 PO ; Start 03/01/17 at 09:00; Stop 03/01/17 at 09:00; Status DC Hydroxyurea (Hydrea) 500 mg SuMoWeFr PO Last administered on 02/23/17 09:00; Start 02/23/17 at 09:00 Hydroxyurea (Hydrea) 1,000 mg QTUTHSA@09 PO ; Start 02/24/17 at 09:00 Levothyroxine Sodium (Synthroid) 150 mcg DAILYAC PO Last administered on 06:37; Start 02/22/17 at 10:30 Midodrine (Proamatine) 5 mg DAILY07 PO Last administered on 02/23/17 06:37; Start 02/23/17 at 07:00 Vitals/I & O Vital Sign - Last 24 Hours 02/22/17 02/22/17 02/22/17 02/22/17 10:40 15:05 19:05 20:00 Temp 97.8 97.8 Pulse 83 80 83 Resp 16 18 B/P 104/41 94/40 98/50 Pulse Ox 100 98 97 O2 Delivery Room Air Room Air 02/22/17 02/23/17 02/23/17 02/23/17 23:05 02:45 06:37 07:15 Temp 98.3 97.9 97.5 98.3 97.9 97.5 Pulse 74 80 80 81 Resp 18 18 18 B/P 100/48 102/51 102/51 123/53 Pulse Ox 100 98 99 O2 Delivery Room Air Room Air 02/23/17 08:00 O2 Delivery Room Air Intake and Output 02/22/17 02/22/17 02/23/17 15:00 23:00 07:00 Intake Total 470 ml 720 ml 1440 ml Balance 470 ml 720 ml 1440 ml EVER GARNER MD Feb 23, 2017 10:08
[2017-02-23 11:03] VITALS: BP 103/41
--- NOTE | 2017-02-23 12:01 | PDOC ---
CARDIO Progress Notes Date and Time Date of Service 02/23/2017 Time of Evaluation 1140 Subjective Subjective: No Chest Pain, No shortness of breath, No Palpitations, No Dizziness, Other (doing better today) Vitals Vitals Vital Signs Date Time Temp Pulse Resp B/P Pulse Ox O2 Delivery O2 Flow Rate FiO2 02/23/17 11:03 97.4 77 18 103/41 99 Room Air 97.4 Weight Weight [ ] Input and Output Intake and Output Intake and Output 02/23/17 07:00 Intake Total 2630 ml Balance 2630 ml Intake Oral 2630 ml # Voids 4 Laboratory Labs Laboratory Tests Test 02/22/17 11:56 02/22/17 12:30 02/22/17 17:05 02/23/17 02:55 Glucose (Fingerstick) 111mg/dL (70-99) 85mg/dL (70-99) Troponin I Quantitative < 0.017ng/mL (0.000-0.055) White Blood Count 8.3x10^3/uL (4.0-11.0) Red Blood Count 2.97x10^6/uL (3.50-5.40) Hemoglobin 10.1g/dL (12.0-15.5) Hematocrit 31.3% (36.0-47.0) Mean Corpuscular Volume 106fL (79-100) Mean Corpuscular Hemoglobin 34pg (25-35) Mean Corpuscular Hemoglobin Concent 32g/dL (31-37) Red Cell Distribution Width 15.7% (11.5-14.5) Platelet Count 359x10^3/uL (140-400) Neutrophils (%) (Auto) 57% (31-73) Lymphocytes (%) (Auto) 28% (24-48) Monocytes (%) (Auto) 6% (0-9) Eosinophils (%) (Auto) 8% (0-3) Basophils (%) (Auto) 1% (0-3) Neutrophils # (Auto) 4.7x10^3uL (1.8-7.7) Lymphocytes # (Auto) 2.3x10^3/uL (1.0-4.8) Monocytes # (Auto) 0.5x10^3/uL (0.0-1.1) Eosinophils # (Auto) 0.7x10^3/uL (0.0-0.7) Basophils # (Auto) 0.1x10^3/uL (0.0-0.2) Sodium Level 138mmol/L (136-145) Potassium Level 4.0mmol/L (3.5-5.1) Chloride Level 102mmol/L (98-107) Carbon Dioxide Level 23mmol/L (21-32) Anion Gap 13 (6-14) Blood Urea Nitrogen 41mg/dL (7-20) Creatinine 6.2mg/dL (0.6-1.0) Estimated GFR (Cockcroft-Gault) 8.0 BUN/Creatinine Ratio 7 (6-20) Glucose Level 74mg/dL (70-99) Calcium Level 7.2mg/dL (8.5-10.1) Total Bilirubin 0.4mg/dL (0.2-1.0) Aspartate Amino Transf (AST/SGOT) 15U/L (15-37) Alanine Aminotransferase (ALT/SGPT) 9U/L (14-59) Alkaline Phosphatase 54U/L (46-116) Total Protein 5.7g/dL (6.4-8.2) Albumin 2.5g/dL (3.4-5.0) Albumin/Globulin Ratio 0.8 (1.0-1.7) Test 02/23/17 10:25 Glucose (Fingerstick) 124mg/dL (70-99) Physical Exam HEENT: Neck Supple W Full Motion Chest: Symmetric LUNGS: Clear to Auscultation Heart: S1S2, RRR Abdomen: Soft N/T Extremities: No Calf Tenderness, Other (trace to 1+ bilateral LE edema) Neurology: alert, oriented, follow commands Assessment Assessment 1. Hypotension and dyspnea: Significant wt loss contributing. Continues at low end but asymptomatic, No SOA. 2. Autonomic dysregulation? 3. ESRD 4. DM2/HLP 5. Macrocytic Anemia: from 12.2 to 10.1 Hgb. 6. Hypothyroidism: last TSH? Synthroid at 150 mcg daily. Defer to PCP. Recommendations 1. Agree with midodrine. At this time would not be able to tolerate antiHTN will reevaluate need as outpt 2. Continue with dialysis TTHS per nephrology 3. If TTE is unremarkable for any significant changes then will consider for outpt stress testing for further risk stratification. 4. Replace Mg. SIL MARCH APRN Feb 23, 2017 12:01
--- NOTE | 2017-02-23 12:06 | PDOC ---
Renal-Progress Notes Subjective Notes Notes FEELS WELL NOW History of Present Illness Hx of present illness BETTER Vitals Vitals Vital Signs Date Time Temp Pulse Resp B/P Pulse Ox O2 Delivery O2 Flow Rate FiO2 02/23/17 11:03 97.4 77 18 103/41 99 Room Air 97.4 Weight Weight [ ] I.O. Intake and Output Intake and Output 02/23/17 07:00 Intake Total 2630 ml Balance 2630 ml Intake Oral 2630 ml # Voids 4 Labs Labs Laboratory Tests Test 02/22/17 12:30 02/22/17 17:05 02/23/17 02:55 02/23/17 10:25 Troponin I Quantitative < 0.017ng/mL (0.000-0.055) Glucose (Fingerstick) 85mg/dL (70-99) 124mg/dL (70-99) White Blood Count 8.3x10^3/uL (4.0-11.0) Red Blood Count 2.97x10^6/uL (3.50-5.40) Hemoglobin 10.1g/dL (12.0-15.5) Hematocrit 31.3% (36.0-47.0) Mean Corpuscular Volume 106fL (79-100) Mean Corpuscular Hemoglobin 34pg (25-35) Mean Corpuscular Hemoglobin Concent 32g/dL (31-37) Red Cell Distribution Width 15.7% (11.5-14.5) Platelet Count 359x10^3/uL (140-400) Neutrophils (%) (Auto) 57% (31-73) Lymphocytes (%) (Auto) 28% (24-48) Monocytes (%) (Auto) 6% (0-9) Eosinophils (%) (Auto) 8% (0-3) Basophils (%) (Auto) 1% (0-3) Neutrophils # (Auto) 4.7x10^3uL (1.8-7.7) Lymphocytes # (Auto) 2.3x10^3/uL (1.0-4.8) Monocytes # (Auto) 0.5x10^3/uL (0.0-1.1) Eosinophils # (Auto) 0.7x10^3/uL (0.0-0.7) Basophils # (Auto) 0.1x10^3/uL (0.0-0.2) Sodium Level 138mmol/L (136-145) Potassium Level 4.0mmol/L (3.5-5.1) Chloride Level 102mmol/L (98-107) Carbon Dioxide Level 23mmol/L (21-32) Anion Gap 13 (6-14) Blood Urea Nitrogen 41mg/dL (7-20) Creatinine 6.2mg/dL (0.6-1.0) Estimated GFR (Cockcroft-Gault) 8.0 BUN/Creatinine Ratio 7 (6-20) Glucose Level 74mg/dL (70-99) Calcium Level 7.2mg/dL (8.5-10.1) Total Bilirubin 0.4mg/dL (0.2-1.0) Aspartate Amino Transf (AST/SGOT) 15U/L (15-37) Alanine Aminotransferase (ALT/SGPT) 9U/L (14-59) Alkaline Phosphatase 54U/L (46-116) Total Protein 5.7g/dL (6.4-8.2) Albumin 2.5g/dL (3.4-5.0) Albumin/Globulin Ratio 0.8 (1.0-1.7) Review of Systems Constitutional: yes: alert, no symptom reported, oriented Eyes: Yes: no symptom reported Pulmonary: Yes no symptom reported Cardiovascular: Yes no symptom reported Gastrointestional: Yes: no symptom reported Genitourinary: Yes: no symptom reported Musculoskeletal: Yes: no symptom reported Physical Exam General Appearance: no apparent distress Skin: warm Respiratory: bilateral CTA Heart: S1S2 Abdomen: bowel sounds present Extremities: pulses present Neurology: alert, oriented Assessment Assessment IMP HYPOTENSION MILD HYPOVOLEMIA ESRD ANEMIA PLAN HD TOMORROW TRIAL OF MIDODRINE ARANESP WILL ADJUST DW WILL FOLLOW SINGH LOGAN MD Feb 23, 2017 12:06
[2017-02-23] MEDS: MIDODRINE 2.5 MG TABLET PO SCH ×2 (13:00→18:30)
--- NOTE | 2017-02-23 13:42 | CARD ---
APPROVED REPORT EXAM: Two-dimensional and M-mode echocardiogram with Doppler and color Doppler. Other Information Quality : Good INDICATION Chest Pain Hypotension 2D DIMENSIONS RVDd2.3 (2.9-3.5cm)Left Atrium(2D)3.4 (1.6-4.0cm) IVSd1.2 (0.7-1.1cm)Aortic Root(2D)2.9 (2.0-3.7cm) LVDd5.2 (3.9-5.9cm)LVOT Diameter2.0 (1.8-2.4cm) PWd1.1 (0.7-1.1cm)LVDs2.1 (2.5-4.0cm) FS (%) 30.0 %SV114.1 ml LVEF(%)60.0 (>50%) Aortic Valve AoV Peak Stefano.122.2cm/sAoV VTI22.7cm AO Peak GR.6.0mmHgLVOT Peak Stefano.121.0cm/s LVOT VTI 20.81cmAO Mean GR.3mmHg MARIANA (VMAX)3.10ht6TIO (VTI)2.88cm2 Mitral Valve MV E Uvtyzibo93.3cm/sMV DECEL [id number] MV A Fxzqfsre468.6cm/sMV [id number] E/A Ratio0.7MVA (PHT)1.80cm2 TDI E/Lateral E'9.8E/Medial E'9.4 Tricuspid Valve TR P. Zyhkcefr463oy/sRAP [id number] TR Peak Gr.[id number] Pulmonary Vein S1 Sgoiduom16.7cm/sD2 Omeyxjsh24.6cm/s PVa [id number] LEFT VENTRICLE The left ventricle is normal size. There is mild concentric left ventricular hypertrophy. The left ve ntricular systolic function is normal and the ejection fraction is within normal range. The Ejection Fraction is 55-60%. There is normal LV segmental wall motion. Transmitral Doppler flow pattern is Gra de I-abnormal relaxation pattern. RIGHT VENTRICLE The right ventricle is normal size. The right ventricular systolic function is normal. ATRIA The left atrium size is normal. The right atrium size is normal. The interatrial septum is intact wit h no evidence for an atrial septal defect or patent foramen ovale as noted on 2-D or Doppler imaging. AORTIC VALVE The aortic valve is calcified with restricted LCC. Doppler and Color Flow revealed no significant aor tic regurgitation. There is no significant aortic valvular stenosis. MITRAL VALVE The mitral valve is calcified but opens well. There is no evidence of mitral valve prolapse. There is no mitral valve stenosis. Doppler and Color-flow revealed mild mitral regurgitation. TRICUSPID VALVE The tricuspid valve is normal in structure and function. Doppler and Color Flow revealed trace tricus pid regurgitation. The PA pressure was estimated at 28 mmHg. There is no tricuspid valve stenosis. PULMONIC VALVE Doppler and Color Flow revealed mild pulmonic valvular regurgitation. There is no pulmonic valvular s tenosis. GREAT VESSELS The aortic root is normal in size. The ascending aorta is normal in size. The IVC is normal in size a nd collapses >50% with inspiration. PERICARDIAL EFFUSION There is no evidence of significant pericardial effusion. Critical Notification Critical Value: No <Conclusion> The left ventricular systolic function is normal and the ejection fraction is within normal range. Th e Ejection Fraction is 55-60%. There is normal LV segmental wall motion.
[2017-02-23] MEDS ORDERED: MAGNESIUM SULFATE 2GM 50 ML IV ONE (14:00)
[2017-02-23 15:20] VITALS: BP 103/27
[2017-02-23 19:25] VITALS: BP 111/48
[2017-02-23] MEDS ORDERED: DARBEPOETIN ALFA 60 MCG/0.3 ML DISP.SYRIN. SQ SCH (21:00)
[2017-02-23 23:05] VITALS: BP 99/37
[2017-02-24 03:05] VITALS: BP 115/48
[2017-02-24 04:41] LABS: ALBUMIN 2.4 g/dL (3.4-5.0); ALBUMIN/GLOBULIN RATIO 0.8 (1.0-1.7); CREATININE 7.6 mg/dL (0.6-1.0); GFR 6.3; POTASSIUM 4.4 mmol/L (3.5-5.1); TOTAL BILIRUBIN 0.4 mg/dL (0.2-1.0); TOTAL PROTEIN 5.5 g/dL (6.4-8.2)
[2017-02-24] MEDS: MIDODRINE 2.5 MG TABLET PO SCH ×2 (06:31→12:07)
[2017-02-24 07:28] VITALS: BP 122/50
[2017-02-24] MEDS: LEVOTHYROXINE 150 MCG TABLET PO SCH (07:30)
[2017-02-24] MEDS: ASPIRIN 81 MG TAB.CHEW PO SCH (08:00)
[2017-02-24] MEDS: FOLIC/VIT B COMP W-C (RENAL) TABLET. PO SCH (08:02)
[2017-02-24] MEDS ORDERED: HYDROXYUREA 500 MG CAPSULE PO SCH (09:00)
--- NOTE | 2017-02-24 10:32 | PDOC ---
PROGRESS NOTES Subjective Subjective seen in dialysis, no complaints Objective Objective Vital Signs Date Time Temp Pulse Resp B/P Pulse Ox O2 Delivery O2 Flow Rate FiO2 02/24/17 08:00 Room Air 02/24/17 07:28 97.9 71 16 122/50 99 97.9 Intake and Output 02/24/17 07:00 Intake Total 950 ml Balance 950 ml Intake Oral 950 ml # Voids 4 Physical Exam Abdomen: Normal bowel sounds, Soft Heart: Regular rate, Normal S1, Normal S2 Extremities: No edema General: Oriented X3 HEENT: Atraumatic Lungs: Clear to auscultation MUSCULOSKELETAL: No deformity, No swelling Neck: Supple Neuro: Normal speech Psych/Mental Status: Mood NL Skin: No rashes Diagnosis Problem List Problems Medical Problems: (1) Dehydration Status: Acute (2) ESRD (end stage renal disease) on dialysis Status: Acute (3) Hypotension Status: Acute Assessment Assessment Problems Medical Problems: (1) Dehydration Status: Acute (2) ESRD (end stage renal disease) on dialysis Status: Acute (3) Hypotension Status: Acute IMPRESSION: 1. Acute hypotension resolved. 2. End-stage renal disease, on hemodialysis. 3. Diabetes mellitus type 2. 4. Nausea. 5. Hypertension. 6. Thrombocytosis. 7. Hyperlipidemia. PLAN: d/c home today echo good LVF Gastric empting test today pt/rehab. labs reviewed ,ok. spoke with renal on amiodarone for hypotension. I will give her extra IV fluids this morning in addition to the continuing of IV drip, because of recurrent hypotension. Consultation has been obtained with Dr. Martinez for nephrology evaluation and management. Consultation has also been obtained with Dr. Parmar for persistent hypotension. I will hold her blood pressure medications including amlodipine and hydralazine. Continue other medications. We will verify the dose of Hydrea. For details, please refer to the orders. Problems: Plan Plan of Care Problems Medical Problems: (1) Dehydration Status: Acute (2) ESRD (end stage renal disease) on dialysis Status: Acute (3) Hypotension Status: Acute Comment Review of Relevant I have reviewed the following items stormy (where applicable) has been applied. Labs Laboratory Tests Test 02/23/17 16:50 02/23/17 20:42 02/24/17 02:55 Glucose (Fingerstick) 95mg/dL (70-99) 107mg/dL (70-99) Sodium Level 139mmol/L (136-145) Potassium Level 4.4mmol/L (3.5-5.1) Chloride Level 101mmol/L (98-107) Carbon Dioxide Level 22mmol/L (21-32) Anion Gap 16 (6-14) Blood Urea Nitrogen 53mg/dL (7-20) Creatinine 7.6mg/dL (0.6-1.0) Estimated GFR (Cockcroft-Gault) 6.3 BUN/Creatinine Ratio 7 (6-20) Glucose Level 70mg/dL (70-99) Calcium Level 7.0mg/dL (8.5-10.1) Total Bilirubin 0.4mg/dL (0.2-1.0) Aspartate Amino Transf (AST/SGOT) 14U/L (15-37) Alanine Aminotransferase (ALT/SGPT) 8U/L (14-59) Alkaline Phosphatase 53U/L (46-116) Total Protein 5.5g/dL (6.4-8.2) Albumin 2.4g/dL (3.4-5.0) Albumin/Globulin Ratio 0.8 (1.0-1.7) Medications Current Medications Darbepoetin Rl (Aranesp) 60 mcg WEEKLYHS SQ Last administered on 02/23/17 20 :40; Start 02/23/17 at 21:00 Hydroxyurea (Hydrea) 500 mg QSU@09 PO ; Start 03/01/17 at 09:00; Stop 03/01/17 at 09:00; Status DC Hydroxyurea (Hydrea) 1,000 mg QTUTHSA@09 PO ; Start 02/24/17 at 09:00 Magnesium Sulfate/ Dextrose (Magnesium Sulfate PREMIX 2GM) 50 ml @ 25 mls/hr 1X ONCE IV Last administered on 02/23/17 15:45; Start 02/23/17 at 14:00; Stop 02/23/17 at 15:59; Status DC Midodrine 2.5 mg 2.5 mg [id number] PO Last administered on 02/24/17 06:31; Start 02/23/17 at 13:00 Vitals/I & O Vital Sign - Last 24 Hours 02/23/17 02/23/17 02/23/17 02/23/17 11:03 13:00 15:20 18:30 Temp 97.4 97.9 97.4 97.9 Pulse 77 77 72 78 Resp 18 18 B/P 103/41 103/41 103/27 128/51 Pulse Ox 99 98 O2 Delivery Room Air Room Air 02/23/17 02/23/17 02/23/17 02/24/17 19:25 20:00 23:05 03:05 Temp 97.9 97.7 97.5 97.9 97.7 97.5 Pulse 78 72 68 Resp 18 18 16 B/P 111/48 99/37 115/48 Pulse Ox 98 96 98 O2 Delivery Room Air Room Air Room Air Room Air 02/24/17 02/24/17 02/24/17 06:31 07:28 08:00 Temp 97.9 97.9 Pulse 68 71 Resp 16 B/P 115/48 122/50 Pulse Ox 99 O2 Delivery Room Air Room Air Intake and Output 02/23/17 02/23/17 02/24/17 15:00 23:00 07:00 Intake Total 650 ml 300 ml Balance 650 ml 300 ml EVER GARNER MD Feb 24, 2017 10:32
[2017-02-24] MEDS ORDERED: MIDO2.5T PO (10:36)
[2017-02-24] MEDS ORDERED: DIALYSIS PATIENT. MC PRN ×2 (10:45)
--- NOTE | 2017-02-24 11:43 | PDOC ---
Renal-Progress Notes Subjective Notes Notes FEELING BETTER History of Present Illness Hx of present illness STABLE Vitals Vitals Vital Signs Date Time Temp Pulse Resp B/P Pulse Ox O2 Delivery O2 Flow Rate FiO2 02/24/17 08:00 Room Air 02/24/17 07:28 97.9 71 16 122/50 99 97.9 Weight Weight [ ] I.O. Intake and Output Intake and Output 02/24/17 07:00 Intake Total 950 ml Balance 950 ml Intake Oral 950 ml # Voids 4 Labs Labs Laboratory Tests Test 02/23/17 16:50 02/23/17 20:42 02/24/17 02:55 Glucose (Fingerstick) 95mg/dL (70-99) 107mg/dL (70-99) Sodium Level 139mmol/L (136-145) Potassium Level 4.4mmol/L (3.5-5.1) Chloride Level 101mmol/L (98-107) Carbon Dioxide Level 22mmol/L (21-32) Anion Gap 16 (6-14) Blood Urea Nitrogen 53mg/dL (7-20) Creatinine 7.6mg/dL (0.6-1.0) Estimated GFR (Cockcroft-Gault) 6.3 BUN/Creatinine Ratio 7 (6-20) Glucose Level 70mg/dL (70-99) Calcium Level 7.0mg/dL (8.5-10.1) Total Bilirubin 0.4mg/dL (0.2-1.0) Aspartate Amino Transf (AST/SGOT) 14U/L (15-37) Alanine Aminotransferase (ALT/SGPT) 8U/L (14-59) Alkaline Phosphatase 53U/L (46-116) Total Protein 5.5g/dL (6.4-8.2) Albumin 2.4g/dL (3.4-5.0) Albumin/Globulin Ratio 0.8 (1.0-1.7) Review of Systems Constitutional: yes: alert, no symptom reported, oriented Eyes: Yes: no symptom reported Pulmonary: Yes no symptom reported Cardiovascular: Yes no symptom reported Gastrointestional: Yes: no symptom reported Genitourinary: Yes: no symptom reported Musculoskeletal: Yes: no symptom reported Physical Exam General Appearance: no apparent distress Skin: warm Respiratory: bilateral CTA Heart: S1S2 Abdomen: bowel sounds present Extremities: pulses present Neurology: alert, oriented, follow commands Assessment Assessment IMP HYPOTENSION MILD HYPOVOLEMIA ESRD ANEMIA PLAN HD TODAY UF TO DW JOSE D/Dillan TODAY D/W ATTENDING SINGH LOGAN MD Feb 24, 2017 11:43
--- NOTE | 2017-02-24 13:55 | RAD ---
EXAM: Gastric emptying scan. HISTORY: Nausea and vomiting. TECHNIQUE: Scintigraphic images of the abdomen were obtained following the oral administration of 2.0 mCi technetium 99m sulfur colloid and egg based meal. COMPARISON: None. FINDINGS: There is normal accumulation of greater tracer within the stomach and emptying of tracer into the small bowel. The gastric imaging half-time is calculated within normal limits at 47 minutes. IMPRESSION: Unremarkable gastric imaging scan.
[2017-02-24 15:13] VITALS: BP 118/52
[2017-03-01] MEDS ORDERED: HYDROXYUREA 500 MG CAPSULE PO SCH (09:00)
== END 2017-02-24 15:25 | disposition home or self-care (01) | DRG 314 ==
LOC: ER 22:22 → 6 SOUTH 02-22 00:08
PROVIDERS: ADMIT Internal Medicine; ATTEND Internal Medicine
DX: I95.9 Hypotension, unspecified (principal); N18.6 End stage renal disease; I12.0 Hypertensive chronic kidney disease with stage 5 chronic kidney disease or end stage renal disease; D53.9 Nutritional anemia, unspecified; E78.00 Pure hypercholesterolemia, unspecified; E78.5 Hyperlipidemia, unspecified; E11.22 Type 2 diabetes mellitus with diabetic chronic kidney disease; E86.1 Hypovolemia; E86.0 Dehydration; E83.42 Hypomagnesemia; D75.89 Other specified diseases of blood and blood-forming organs; I73.9 Peripheral vascular disease, unspecified; Z82.3 Family history of stroke; Z82.49 Family history of ischemic heart disease and other diseases of the circulatory system; Z83.3 Family history of diabetes mellitus; Z86.73 Personal history of transient ischemic attack (TIA), and cerebral infarction without residual deficits; Z99.2 Dependence on renal dialysis; Z87.891 Personal history of nicotine dependence; Z88.0 Allergy status to penicillin; Z88.2 Allergy status to sulfonamides; Z91.09 Other allergy status, other than to drugs and biological substances; Z90.49 Acquired absence of other specified parts of digestive tract; Z90.710 Acquired absence of both cervix and uterus
CPT/HCPCS: 36415; 71020; 78264; 80053; 82533; 82947; 83735; 84484; 85007; 85027; 93005; 93306; 96361; 96374; A9541; J0881; J2405; J7030; J7040; J7050; J7060; 99285-25

== ENCOUNTER 2017-12-12 19:31 | Emergency (ER) | payer BC, MEDICARE ==
[2017-12-12] MEDS: SIMETHICONE 80 MG TAB.CHEW PO (20:33)
[2017-12-12 20:58] LABS: ADD MAN DIFF? NO
[2017-12-12 21:05] LABS: BASO % 1 % (0-3); EOS # 0.3 x10^3/uL (0.0-0.7); EOS % 4 % (0-3); HEMATOCRIT 35.6 % (36.0-47.0); HEMOGLOBIN 11.7 g/dL (12.0-15.5); LYMPH % 15 % (24-48); MEAN CORPUSCULAR HEMOGLOBIN 36 pg (25-35); MEAN CORPUSCULAR HGB CONC 33 g/dL (31-37); MEAN CORPUSCULAR VOLUME 108 fL (79-100); MONO # 0.4 x10^3/uL (0.0-1.1); MONO % 7 % (0-9); NEUT % 74 % (31-73); PLATELET COUNT 445 x10^3/uL (140-400); RED BLOOD COUNT 3.29 x10^6/uL (3.50-5.40); RED CELL DISTRIBUTION WIDTH 17.8 % (11.5-14.5); WHITE BLOOD COUNT 6.8 x10^3/uL (4.0-11.0)
[2017-12-12 21:19] LABS: ANION GAP 11 (6-14); BLOOD UREA NITROGEN 20 mg/dL (7-20); BUN/CREATININE RATIO 4 (6-20); CALCIUM 6.8 mg/dL (8.5-10.1); CARBON DIOXIDE 33 mmol/L (21-32); CHLORIDE 100 mmol/L (98-107); CREATININE 4.5 mg/dL (0.6-1.0); GFR 11.6; GLUCOSE 110 mg/dL (70-99); POTASSIUM 3.3 mmol/L (3.5-5.1); SODIUM 144 mmol/L (136-145)
[2017-12-12 21:25] LABS: ALBUMIN 3.5 g/dL (3.4-5.0); ALBUMIN/GLOBULIN RATIO 0.9 (1.0-1.7); ALK PHOS 96 U/L (46-116); ALT (SGPT) 13 U/L (14-59); AST (SGOT) 19 U/L (15-37); TOTAL BILIRUBIN 0.3 mg/dL (0.2-1.0); TOTAL PROTEIN 7.5 g/dL (6.4-8.2)
[2017-12-12 21:29] LABS: TROPONINI < 0.017 ng/mL (0.000-0.055)
== END 2017-12-12 22:27 | disposition home or self-care (01) ==
LOC: ER 19:31
DX: R06.02 Shortness of breath (principal); R42 Dizziness and giddiness; I12.0 Hypertensive chronic kidney disease with stage 5 chronic kidney disease or end stage renal disease; E11.22 Type 2 diabetes mellitus with diabetic chronic kidney disease; N18.6 End stage renal disease; E78.00 Pure hypercholesterolemia, unspecified; Z86.73 Personal history of transient ischemic attack (TIA), and cerebral infarction without residual deficits; Z88.2 Allergy status to sulfonamides; Z88.0 Allergy status to penicillin; Z90.49 Acquired absence of other specified parts of digestive tract; Z90.710 Acquired absence of both cervix and uterus; Z91.041 Radiographic dye allergy status; Z88.8 Allergy status to other drugs, medicaments and biological substances; Z99.2 Dependence on renal dialysis
CPT/HCPCS: 36415; 71045; 80053; 84484; 85025; 93005; 99285-25

== ENCOUNTER → 2018-05-04 | Outpatient (CLI) | payer BC, MEDICARE ==
[2018-05-04 15:50] LABS: POTASSIUM 4.6 mmol/L (3.5-5.1)
== END | disposition home or self-care (01) ==
LOC: LAB 15:01
DX: Z13.220 Encounter for screening for lipoid disorders (principal); I12.0 Hypertensive chronic kidney disease with stage 5 chronic kidney disease or end stage renal disease; E11.22 Type 2 diabetes mellitus with diabetic chronic kidney disease; N18.5 Chronic kidney disease, stage 5; E03.9 Hypothyroidism, unspecified; E78.00 Pure hypercholesterolemia, unspecified; G43.909 Migraine, unspecified, not intractable, without status migrainosus; E83.42 Hypomagnesemia; Z86.2 Personal history of diseases of the blood and blood-forming organs and certain disorders involving the immune mechanism
CPT/HCPCS: 36415; 84132

== ENCOUNTER 2018-05-25 22:34 | Emergency (ER) | payer BC, MEDICARE ==
[2018-05-25] MEDS: DIPHTH,PERTUSS(ACELL),TET TOX 0.5 ML DISP.SYRIN. VAX IM (23:35)
== END 2018-05-26 00:06 | disposition home or self-care (01) ==
LOC: ER 05-26 00:06
DX: S81.852A Open bite, left lower leg, initial encounter (principal); E11.9 Type 2 diabetes mellitus without complications; E78.00 Pure hypercholesterolemia, unspecified; I12.9 Hypertensive chronic kidney disease with stage 1 through stage 4 chronic kidney disease, or unspecified chronic kidney disease; N18.9 Chronic kidney disease, unspecified; E11.22 Type 2 diabetes mellitus with diabetic chronic kidney disease; Z99.2 Dependence on renal dialysis; Z88.0 Allergy status to penicillin; Z88.2 Allergy status to sulfonamides; Z91.041 Radiographic dye allergy status; Z86.73 Personal history of transient ischemic attack (TIA), and cerebral infarction without residual deficits; W54.0XXA Bitten by dog, initial encounter; Y93.89 Activity, other specified; Y99.8 Other external cause status; Y92.89 Other specified places as the place of occurrence of the external cause
CPT/HCPCS: 90471; 90715; 99283-25

== ENCOUNTER → 2018-07-19 | Outpatient (CLI) | payer BC, MEDICARE ==
[2018-05-25 22:46] VITALS: BP 116/54
[~2018-07-19] MED LIST changes: +AMOX1TAB10 PO; -ASPI81TA44 PO; +ASPI81TA59 PO; +HYDR500C16 PO; -HYDR500C3 PO; -INSU100V10 IJ; +INSU100V11 IJ; -LEVO25TA2 PO; +LEVO25TA55 PO; +MIDO2.5T PO; +URSO300C26 PO; -URSO300C3 PO
== END | disposition home or self-care (01) ==
LOC: PMGWOUND 08:28
PROVIDERS: ATTEND Emergency Medicine Undersea and Hyperbaric Medicine
DX: S81.852A Open bite, left lower leg, initial encounter (principal); E11.22 Type 2 diabetes mellitus with diabetic chronic kidney disease; I12.0 Hypertensive chronic kidney disease with stage 5 chronic kidney disease or end stage renal disease; N18.6 End stage renal disease; E11.40 Type 2 diabetes mellitus with diabetic neuropathy, unspecified; E11.69 Type 2 diabetes mellitus with other specified complication; M19.90 Unspecified osteoarthritis, unspecified site; E78.5 Hyperlipidemia, unspecified; E78.00 Pure hypercholesterolemia, unspecified; E03.9 Hypothyroidism, unspecified; G89.4 Chronic pain syndrome; I73.9 Peripheral vascular disease, unspecified; G43.909 Migraine, unspecified, not intractable, without status migrainosus; Z99.2 Dependence on renal dialysis; Z91.09 Other allergy status, other than to drugs and biological substances; Z86.73 Personal history of transient ischemic attack (TIA), and cerebral infarction without residual deficits; Z88.0 Allergy status to penicillin; Z88.2 Allergy status to sulfonamides; Z87.891 Personal history of nicotine dependence; W54.0XXA Bitten by dog, initial encounter; Y93.89 Activity, other specified; Y92.89 Other specified places as the place of occurrence of the external cause; Y99.8 Other external cause status
CPT/HCPCS: 11042

== ENCOUNTER → 2018-07-26 | Outpatient (CLI) | payer BC, MEDICARE ==
[2018-05-25 22:46] VITALS: BP 116/54
[~2018-07-26] MED LIST changes: -AMLO5TAB2 PO; +AMLO5TAB7 PO
== END | disposition home or self-care (01) ==
LOC: PMGWOUND 08:31
PROVIDERS: ATTEND Emergency Medicine Undersea and Hyperbaric Medicine
DX: S81.852D Open bite, left lower leg, subsequent encounter (principal); I12.0 Hypertensive chronic kidney disease with stage 5 chronic kidney disease or end stage renal disease; E11.22 Type 2 diabetes mellitus with diabetic chronic kidney disease; N18.6 End stage renal disease; E11.40 Type 2 diabetes mellitus with diabetic neuropathy, unspecified; E11.51 Type 2 diabetes mellitus with diabetic peripheral angiopathy without gangrene; E78.5 Hyperlipidemia, unspecified; E03.9 Hypothyroidism, unspecified; G43.909 Migraine, unspecified, not intractable, without status migrainosus; I73.9 Peripheral vascular disease, unspecified; G89.4 Chronic pain syndrome; E78.00 Pure hypercholesterolemia, unspecified; F41.9 Anxiety disorder, unspecified; M19.90 Unspecified osteoarthritis, unspecified site; Z99.2 Dependence on renal dialysis; Z88.0 Allergy status to penicillin; Z88.2 Allergy status to sulfonamides; Z88.8 Allergy status to other drugs, medicaments and biological substances; Z86.73 Personal history of transient ischemic attack (TIA), and cerebral infarction without residual deficits; Z87.891 Personal history of nicotine dependence; W54.0XXD Bitten by dog, subsequent encounter
CPT/HCPCS: 97597

== ENCOUNTER → 2018-08-09 | Outpatient (CLI) | payer BC, MEDICARE ==
[2018-05-25 22:46] VITALS: BP 116/54
== END | disposition home or self-care (01) ==
LOC: PMGWOUND 08:01
PROVIDERS: ATTEND Emergency Medicine Undersea and Hyperbaric Medicine
DX: S81.852D Open bite, left lower leg, subsequent encounter (principal); I12.0 Hypertensive chronic kidney disease with stage 5 chronic kidney disease or end stage renal disease; E11.22 Type 2 diabetes mellitus with diabetic chronic kidney disease; N18.6 End stage renal disease; E11.40 Type 2 diabetes mellitus with diabetic neuropathy, unspecified; E11.51 Type 2 diabetes mellitus with diabetic peripheral angiopathy without gangrene; F41.9 Anxiety disorder, unspecified; G89.4 Chronic pain syndrome; E78.5 Hyperlipidemia, unspecified; E03.9 Hypothyroidism, unspecified; G43.909 Migraine, unspecified, not intractable, without status migrainosus; E78.00 Pure hypercholesterolemia, unspecified; M19.90 Unspecified osteoarthritis, unspecified site; Z99.2 Dependence on renal dialysis; Z90.49 Acquired absence of other specified parts of digestive tract; Z87.891 Personal history of nicotine dependence; Z86.73 Personal history of transient ischemic attack (TIA), and cerebral infarction without residual deficits; Z88.8 Allergy status to other drugs, medicaments and biological substances; W54.0XXD Bitten by dog, subsequent encounter
CPT/HCPCS: 99213

== ENCOUNTER → 2018-08-16 | Outpatient (CLI) | payer BC, MEDICARE ==
[2018-05-25 22:46] VITALS: BP 116/54
== END | disposition home or self-care (01) ==
LOC: PMGWOUND 08:05
PROVIDERS: ATTEND Emergency Medicine Undersea and Hyperbaric Medicine
DX: S81.852D Open bite, left lower leg, subsequent encounter (principal); I13.2 Hypertensive heart and chronic kidney disease with heart failure and with stage 5 chronic kidney disease, or end stage renal disease; E11.22 Type 2 diabetes mellitus with diabetic chronic kidney disease; N18.6 End stage renal disease; I50.9 Heart failure, unspecified; E11.40 Type 2 diabetes mellitus with diabetic neuropathy, unspecified; E11.51 Type 2 diabetes mellitus with diabetic peripheral angiopathy without gangrene; F41.9 Anxiety disorder, unspecified; E78.00 Pure hypercholesterolemia, unspecified; G89.4 Chronic pain syndrome; M19.90 Unspecified osteoarthritis, unspecified site; E03.9 Hypothyroidism, unspecified; E78.5 Hyperlipidemia, unspecified; G43.909 Migraine, unspecified, not intractable, without status migrainosus; Z99.2 Dependence on renal dialysis; Z90.49 Acquired absence of other specified parts of digestive tract; Z87.891 Personal history of nicotine dependence; Z86.73 Personal history of transient ischemic attack (TIA), and cerebral infarction without residual deficits; W54.0XXD Bitten by dog, subsequent encounter
CPT/HCPCS: 11042

== ENCOUNTER → 2018-08-23 | Outpatient (CLI) | payer BC, MEDICARE ==
[2018-05-25 22:46] VITALS: BP 116/54
== END | disposition home or self-care (01) ==
LOC: PMGWOUND 08:01
PROVIDERS: ATTEND Emergency Medicine Undersea and Hyperbaric Medicine
DX: S81.852D Open bite, left lower leg, subsequent encounter (principal); I13.2 Hypertensive heart and chronic kidney disease with heart failure and with stage 5 chronic kidney disease, or end stage renal disease; E11.22 Type 2 diabetes mellitus with diabetic chronic kidney disease; N18.6 End stage renal disease; I50.9 Heart failure, unspecified; E11.40 Type 2 diabetes mellitus with diabetic neuropathy, unspecified; E11.51 Type 2 diabetes mellitus with diabetic peripheral angiopathy without gangrene; F41.9 Anxiety disorder, unspecified; G89.4 Chronic pain syndrome; G43.909 Migraine, unspecified, not intractable, without status migrainosus; E78.00 Pure hypercholesterolemia, unspecified; E03.9 Hypothyroidism, unspecified; E78.5 Hyperlipidemia, unspecified; M19.90 Unspecified osteoarthritis, unspecified site; Z99.2 Dependence on renal dialysis; Z90.49 Acquired absence of other specified parts of digestive tract; Z87.891 Personal history of nicotine dependence; Z86.73 Personal history of transient ischemic attack (TIA), and cerebral infarction without residual deficits; W54.0XXD Bitten by dog, subsequent encounter
CPT/HCPCS: 99214; G0463

== ENCOUNTER → 2018-08-30 | Outpatient (CLI) | payer BC, MEDICARE ==
[2018-05-25 22:46] VITALS: BP 116/54
== END | disposition home or self-care (01) ==
LOC: PMGWOUND 08:00
PROVIDERS: ATTEND Emergency Medicine Undersea and Hyperbaric Medicine
DX: S81.852D Open bite, left lower leg, subsequent encounter (principal); I13.2 Hypertensive heart and chronic kidney disease with heart failure and with stage 5 chronic kidney disease, or end stage renal disease; E11.22 Type 2 diabetes mellitus with diabetic chronic kidney disease; N18.6 End stage renal disease; I50.9 Heart failure, unspecified; E11.40 Type 2 diabetes mellitus with diabetic neuropathy, unspecified; E11.51 Type 2 diabetes mellitus with diabetic peripheral angiopathy without gangrene; F41.9 Anxiety disorder, unspecified; G89.4 Chronic pain syndrome; G43.909 Migraine, unspecified, not intractable, without status migrainosus; E78.00 Pure hypercholesterolemia, unspecified; E03.9 Hypothyroidism, unspecified; E78.5 Hyperlipidemia, unspecified; M19.90 Unspecified osteoarthritis, unspecified site; Z99.2 Dependence on renal dialysis; Z90.49 Acquired absence of other specified parts of digestive tract; Z87.891 Personal history of nicotine dependence; Z86.73 Personal history of transient ischemic attack (TIA), and cerebral infarction without residual deficits; W54.0XXD Bitten by dog, subsequent encounter
CPT/HCPCS: 97597

== ENCOUNTER → 2018-09-13 | Outpatient (CLI) | payer BC, MEDICARE ==
[2018-05-25 22:46] VITALS: BP 116/54
== END | disposition home or self-care (01) ==
LOC: PMGWOUND 11:00
PROVIDERS: ATTEND Emergency Medicine Undersea and Hyperbaric Medicine
DX: S81.852D Open bite, left lower leg, subsequent encounter (principal); E11.40 Type 2 diabetes mellitus with diabetic neuropathy, unspecified; E11.51 Type 2 diabetes mellitus with diabetic peripheral angiopathy without gangrene; I13.2 Hypertensive heart and chronic kidney disease with heart failure and with stage 5 chronic kidney disease, or end stage renal disease; E11.22 Type 2 diabetes mellitus with diabetic chronic kidney disease; N18.6 End stage renal disease; I50.9 Heart failure, unspecified; F41.9 Anxiety disorder, unspecified; E78.5 Hyperlipidemia, unspecified; G89.4 Chronic pain syndrome; G43.909 Migraine, unspecified, not intractable, without status migrainosus; E03.9 Hypothyroidism, unspecified; M19.90 Unspecified osteoarthritis, unspecified site; E78.00 Pure hypercholesterolemia, unspecified; Z99.2 Dependence on renal dialysis; Z87.891 Personal history of nicotine dependence; Z86.73 Personal history of transient ischemic attack (TIA), and cerebral infarction without residual deficits; Z90.49 Acquired absence of other specified parts of digestive tract; Z88.8 Allergy status to other drugs, medicaments and biological substances; Z88.0 Allergy status to penicillin; Z88.2 Allergy status to sulfonamides; W54.0XXD Bitten by dog, subsequent encounter
CPT/HCPCS: 97597

== ENCOUNTER → 2018-09-27 | Outpatient (CLI) | payer BC, MEDICARE ==
[2018-05-25 22:46] VITALS: BP 116/54
== END | disposition home or self-care (01) ==
LOC: PMGWOUND 08:00
PROVIDERS: ATTEND Emergency Medicine Undersea and Hyperbaric Medicine
DX: S81.852D Open bite, left lower leg, subsequent encounter (principal); E11.40 Type 2 diabetes mellitus with diabetic neuropathy, unspecified; E11.51 Type 2 diabetes mellitus with diabetic peripheral angiopathy without gangrene; E11.22 Type 2 diabetes mellitus with diabetic chronic kidney disease; I13.2 Hypertensive heart and chronic kidney disease with heart failure and with stage 5 chronic kidney disease, or end stage renal disease; N18.6 End stage renal disease; I50.9 Heart failure, unspecified; F41.9 Anxiety disorder, unspecified; E78.5 Hyperlipidemia, unspecified; G89.4 Chronic pain syndrome; G43.909 Migraine, unspecified, not intractable, without status migrainosus; E03.9 Hypothyroidism, unspecified; M19.90 Unspecified osteoarthritis, unspecified site; E78.00 Pure hypercholesterolemia, unspecified; Z87.891 Personal history of nicotine dependence; Z86.73 Personal history of transient ischemic attack (TIA), and cerebral infarction without residual deficits; Z90.49 Acquired absence of other specified parts of digestive tract; Z88.8 Allergy status to other drugs, medicaments and biological substances; Z88.0 Allergy status to penicillin; Z88.2 Allergy status to sulfonamides; Z99.2 Dependence on renal dialysis; W54.0XXD Bitten by dog, subsequent encounter
CPT/HCPCS: 99213

== ENCOUNTER 2020-06-09 18:01 | Emergency (ER) | payer BC, MEDICARE ==
[~2020-06-09] VITALS: Ht 170.2 cm; Wt 125.0 kg
[~2020-06-09 18:01] MED LIST changes: +AMLO5TAB10 PO; -AMLO5TAB7 PO
--- NOTE | 2020-06-09 18:53 | PHYS DOC ---
Past Medical History Past Medical History: Diabetes-Type II, Hypertension, Hypothyroid, Renal Failure Past Surgical History: No Surgical History, Cholecystectomy, Hysterectomy, Other Additional Past Surgical Histo: THYROIDECTOMY Smoking Status: Former Smoker Alcohol Use: None Drug Use: None General Adult EDM: Chief Complaint: SHORTNESS OF BREATH HPI: HPI: 74-year-old female past medical history end-stage renal disease presents for evaluation of shortness of breath. Patient states she did not go to dialysis this morning. She states that she felt tired and overall did not feel well. She states she had associated shortness of breath but denies any sputum production she called the dialysis center and they advised her to come get tested. Patient states she currently feels much better than she did this morning. She states she had a generalized headache which she normally has but is currently resolved. She does state she is short of breath but unable to tell me if it is with exertion or not. At sitting in the bed she denies any shortness of breath. She does have a cough but denies any sputum production she does not give a history of a fever. Patient's vital signs are stable. Overall patient looks well. She is afebrile and not hypoxic. Based upon history of present illness and physical exam we will swab patient for COVID. We will do basic labs and a chest x-ray. Review of Systems: Review of Systems: Constitutional: Denies fever or chills. [] Eyes: Denies change in visual acuity. [] HENT: Denies nasal congestion or sore throat. [] Respiratory: Positive cough positive shortness of breath Cardiovascular: Denies chest pain or edema. [] GI: Denies abdominal pain, nausea, vomiting, bloody stools or diarrhea. [] : Denies dysuria. [] Musculoskeletal: Denies back pain or joint pain. [] Integument: Denies rash. [] Neurologic: Denies headache, focal weakness or sensory changes. [Positive generalized weakness] Endocrine: Denies polyuria or polydipsia. [] Lymphatic: Denies swollen glands. [] Psychiatric: Denies depression or anxiety. [] Heart Score: Risk Factors: Risk Factors: DM, Current or recent (<one month) smoker, HTN, HLP, family history of CAD, obesity. Risk Scores: Score 0 - 3: 2.5% MACE over next 6 weeks - Discharge Home Score 4 - 6: 20.3% MACE over next 6 weeks - Admit for Clinical Observation Score 7 - 10: 72.7% MACE over next 6 weeks - Early Invasive Strategies Allergies: Allergies: Allergies Coded Allergies Type Severity Reaction Last Updated Verified Penicillins Allergy Intermediate SEVERE ITCHING-NO HIVES 02/22/17 Yes Sulfa (Sulfonamide Antibiotics) Allergy Intermediate 08/25/16 Yes I S O L A T I O N *CONTACT* Allergy Unknown 02/23/17 Yes Uncoded Allergies Type Severity Reaction Last Updated Verified surgical silvia Allergy Intermediate Rash 10/14/15 Physical Exam: PE: Constitutional: Well developed, well nourished, no acute distress, non-toxic appearance. [] HENT: Normocephalic, atraumatic, bilateral external ears normal, oropharynx moist, no oral exudates, nose normal. [] Eyes: PERRLA, EOMI, conjunctiva normal, no discharge. [] Neck: Normal range of motion, no tenderness, supple, no stridor. [] Cardiovascular:Heart rate regular rhythm, no murmur [] Lungs & Thorax: Bilateral breath sounds clear to auscultation [] Abdomen: Bowel sounds normal, soft, no tenderness, no masses, no pulsatile masses. [] Skin: Warm, dry, no erythema, no rash. [] Back: No tenderness, no CVA tenderness. [] Extremities: No tenderness, no cyanosis, no clubbing, ROM intact, no edema. [] Neurologic: Alert and oriented X 3, normal motor function, normal sensory function, no focal deficits noted. [] Psychologic: Affect normal, judgement normal, mood normal. [] EKG: EKG: [] EKG time 1850 sinus rhythm rate 84 left axis deviation no ST elevation no ST depression no acute MT Radiology/Procedures: Radiology/Procedures: [] Impression: CHEST AP ONLY History: Reason: sob / Spl. Instructions: / History: Comparison: December 12, 2017 Findings: No consolidation or pleural effusion. Normal heart size. No pneumothorax. Vascular stent projecting over the left upper extremity. Impression: 1. No acute cardiopulmonary process. Electronically signed by: Stephen Bui DO (06/09/2020 7:44 PM) [facility] Course & Med Decision Making: Course & Med Decision Making Pertinent Labs and Imaging studies reviewed. (See chart for details) [] Patient was evaluated for chief complaint. Work-up consisted of laboratory analysis and radiologic imaging. Results reviewed and discussed with patient. Patient did have an elevated creatinine consistent with end-stage renal disease. Patient had a mildly elevated BNP. Chest x-ray without focal infiltrate. EKG without acute ischemic changes. Patient was requesting a COVID it was drawn it is currently pending. Patient vital signs stable patient be discharged with COVID information. Dragon Disclaimer: Dragon Disclaimer: This electronic medical record was generated, in whole or in part, using a voice recognition dictation system. Departure Departure Impression: Primary Impression: ESRD (end stage renal disease) on dialysis Condition: STABLE Referrals: EVER GARNER MD (PCP) Patient Instructions: Shortness of Breath, Weakness Additional Instructions: You have been tested for or diagnosed with COVID-19. It is an infection caused by a new type of coronavirus. COVID-19 will cause cold-like or mild flu symptoms in most. It can cause more severe symptoms like problems breathing in some. There is no treatment for COVID-19. The body will clear the infection over time. Self-care will help to ease discomfort. Steps to Take: Self-Care Rest as needed. Healthy habits may help you feel better. Steps include: Choose healthy foods including fruits and vegetables. Drink water throughout the day. Get plenty of sleep each night. If you smoke, try to quit. It may ease breathing. Avoid alcohol. Keep Others Healthy The virus can spread to others. Droplets are released every time you sneeze or cough. The droplets can get into the mouth, nose, or eyes of people near you and lead to infection. To lower the chances of spreading COVID-19 to others: Stay at home until your doctor has said it is safe to leave. If you tested positive this will mean staying isolated until both of the following are true: At least 7 days have passed since the start of illness. You are free of fever for at least 72 hours without the use of medicine. During this time: - Avoid public areas, events, or transportation. Do not return to work or school until your doctor has said it is safe to do so. - Call ahead if you need to go to a medical center. Let them know you may have COVID-19. It will help them guide you where to go. They may also ask you to wear a facemask when you come to the office. - If you call for emergency medical services, let them know you may have COVID- 19. While at home: - Try to avoid close contact with others. Stay about 6 feet away. - If possible, spend most of your time in a separate room from others. - Use a face mask if you will be in close contact with others such as sharing a room or vehicle. - Have someone wipe down common surfaces in the home. Use household water resource specialist every day on areas like doorknobs, counters, or sinks. - Cough or sneeze into a tissue. Throw the tissue away right after use. If a tissue is not available, cough or sneeze into your elbow. - Wash your hands often. Wash them after sneezing or coughing. Use soap and water and wash for at least 20 seconds. Alcohol based hand cleaner carpet and upholstery can be used if soap and water is not available. - Do not prepare food for others. Avoid sharing personal items like forks, spoons, or toothbrushes. - Avoid close contact with pets while you are sick. There is no evidence of the virus passing to pets. This is a safety step until more is known about this virus. Isolation can be frustrating. Social interaction can help. Keep in touch with friends and family through phone and tech options. You can still interact with others in your home, just keep a safe distance of about 6 feet. Follow-up: Your doctors office will check in with you to see if there are any changes in your health. You may be asked to keep track of symptoms to share with them. They will also let you know when you are clear to be in public again. Problems to Look Out For: Contact your doctor if your recovery is not going as you expect. Get emergency care if you have problems such as: - Trouble breathing - Nonstop chest pain or pressure - Changes in awareness, confusion, or problems waking - Lips or face have bluish color - Worsening of symptoms If you think you have an emergency, call for emergency medical services right away. As taken from [facility] Justicifation of Admission Dx: Justifications for Admission: Justification of Admission Dx: N/A GEM AVILEZ I DO Jun 09, 2020 18:53
[2020-06-09 19:04] LABS: BASO # 0.1 x10^3/uL (0.0-0.2); BASO % 1 % (0-3); EOS # 0.4 x10^3/uL (0.0-0.7); EOS % 4 % (0-3); HEMATOCRIT 32.9 % (36.0-47.0); HEMOGLOBIN 10.5 g/dL (12.0-15.5); LYMPH # 1.5 x10^3/uL (1.0-4.8); LYMPH % 14 % (24-48); MEAN CORPUSCULAR HEMOGLOBIN 34 pg (25-35); MEAN CORPUSCULAR HGB CONC 32 g/dL (31-37); MEAN CORPUSCULAR VOLUME 106 fL (79-100); MONO # 0.6 x10^3/uL (0.0-1.1); MONO % 6 % (0-9); NEUT # 8.5 x10^3/uL (1.8-7.7); NEUT % 76 % (31-73); PLATELET COUNT 413 x10^3/uL (140-400); RED BLOOD COUNT 3.12 x10^6/uL (3.50-5.40); RED CELL DISTRIBUTION WIDTH 18.8 % (11.5-14.5); WHITE BLOOD COUNT 11.1 x10^3/uL (4.0-11.0)
--- NOTE | 2020-06-09 19:47 | RAD ---
CHEST AP ONLY History: Reason: sob / Spl. Instructions: / History: Comparison: December 12, 2017 Findings: No consolidation or pleural effusion. Normal heart size. No pneumothorax. Vascular stent projecting over the left upper extremity. Impression: 1. No acute cardiopulmonary process. Electronically signed by: Stephen Bui DO (06/09/2020 7:44 PM) [facility]
[2020-06-09 19:50] LABS: CALCIUM 7.9 mg/dL (8.5-10.1); CREATININE 8.7 mg/dL (0.6-1.0); GFR 5.4; POTASSIUM 4.1 mmol/L (3.5-5.1)
[2020-06-09 19:55] LABS: ALBUMIN 3.1 g/dL (3.4-5.0); ALBUMIN/GLOBULIN RATIO 0.9 (1.0-1.7); TOTAL BILIRUBIN 1.1 mg/dL (0.2-1.0); TOTAL PROTEIN 6.7 g/dL (6.4-8.2)
[2020-06-09 20:21] VITALS: BP 158/71
--- NOTE | 2020-06-12 07:55 | EKG ---
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
== END 2020-06-09 20:25 | disposition home or self-care (01) ==
LOC: ER 18:01
DX: I12.0 Hypertensive chronic kidney disease with stage 5 chronic kidney disease or end stage renal disease (principal); E11.22 Type 2 diabetes mellitus with diabetic chronic kidney disease; N18.6 End stage renal disease; Z99.2 Dependence on renal dialysis; Z20.828 Contact with and (suspected) exposure to other viral communicable diseases; E03.9 Hypothyroidism, unspecified; Z87.891 Personal history of nicotine dependence; Z90.49 Acquired absence of other specified parts of digestive tract; Z90.710 Acquired absence of both cervix and uterus; Z88.0 Allergy status to penicillin; Z88.2 Allergy status to sulfonamides; Z91.041 Radiographic dye allergy status; Z88.8 Allergy status to other drugs, medicaments and biological substances
CPT/HCPCS: 36415; 71045; 80053; 83880; 84484; 85025; 93005; 99285; U0003

== ENCOUNTER 2020-10-27 15:54 | Emergency (ER) | payer BC, MEDICARE ==
[~2020-10-27] VITALS: Ht 165.1 cm; Wt 90.0 kg
[~2020-10-27 15:54] MED LIST changes: +AMLO-186 PO; -AMLO5TAB10 PO; +ASPI325T11 PO; +ATOR10TA60 PO; +CYAN1TAB17 PO; +MEMA10TA PO; +MV-M1TAB7 PO; +NAPR220T70 PO
--- NOTE | 2020-10-27 16:15 | PHYS DOC ---
Past Medical History Past Medical History: Diabetes-Type II, Hypertension, Hypothyroid, Renal Failure Past Surgical History: Cholecystectomy, Hysterectomy, Other Additional Past Surgical Histo: THYROIDECTOMY Smoking Status: Former Smoker Alcohol Use: None Drug Use: None General Adult EDM: Chief Complaint: HYPOTENSION HPI: HPI: 75-year-old female past medical history significant for esrd (TuThSa), hypertension, hypothyroidism, dementia and diabetes, presents to the ed bibems with daughter, concern for syncope while going up her stairs. Pt had just arrived home for HD (s/p 3.1L) and was so weak she coudn't get up the stairs, yelled out for her daughter (lives with both daughters) and stated "I feel like I'm going to ," then passed out. Did not hit her head/daughter was right next to her, is not on any AC. Pt has never made any prior statements about dying. Pt returned to her baseline mental status. Has a long history of syncope after HD. EMS reported pts' BP was 70/50. No hypotension in ed. Pt with no active complaints in ed and due to dementia, is unable to recall todays' events. Pt denies any current chest pain, dyspnea, neuro deficits or fever. Review of Systems: Review of Systems: Constitutional: Denies fever or chills. [] Eyes: Denies change in visual acuity. [] HENT: Denies nasal congestion or sore throat. [] Respiratory: Denies cough or shortness of breath or hemoptysis Cardiovascular: Denies chest pain or edema. [] GI: Denies abdominal pain, nausea, vomiting, bloody stools or diarrhea. [] : Denies dysuria/hematuria-primarily anuric-makes some urine once/week Musculoskeletal: Denies back pain or joint pain. [] Integument: Denies rash. [] Neurologic: Denies headache, focal weakness or sensory changes. [] Endocrine: Denies polyuria or polydipsia. [] Lymphatic: Denies swollen glands. [] Psychiatric: Denies depression or anxiety, denies SI/HI Heart Score: Risk Factors: Risk Factors: DM, Current or recent (<one month) smoker, HTN, HLP, family history of CAD, obesity. Risk Scores: Score 0 - 3: 2.5% MACE over next 6 weeks - Discharge Home Score 4 - 6: 20.3% MACE over next 6 weeks - Admit for Clinical Observation Score 7 - 10: 72.7% MACE over next 6 weeks - Early Invasive Strategies Allergies: Allergies: Allergies Coded Allergies Type Severity Reaction Last Updated Verified Penicillins Allergy Intermediate SEVERE ITCHING-NO HIVES 02/22/17 Yes Sulfa (Sulfonamide Antibiotics) Allergy Intermediate 08/25/16 Yes Uncoded Allergies Type Severity Reaction Last Updated Verified surgical silvia Allergy Intermediate Rash 10/14/15 Physical Exam: PE: Constitutional: Well developed, well nourished, no acute distress, non-toxic appearance, pt smiling, telling jokes-enjoyable to be around and provide care HENT: Normocephalic, atraumatic, Eyes: EOMI, conjunctiva normal, no discharge. Neck: Normal range of motion, supple, Cardiovascular: S1/2 present, regular rhythm Lungs & Thorax: Speaking in full sentences, bilateral equal chest rise, no tachy pnea or increased work of breathing Abdomen: soft, no tenderness, Skin: Warm, dry, no erythema, no rash. [] Back: No tenderness, no CVA tenderness. [] Extremities: No tenderness, no cyanosis, bl le pitting edema, bl ue fistulas w/thrills Neurologic: Alert, normal motor function, normal sensory function, no focal deficits noted. [] Psychologic: Affect normal, judgement normal, mood normal. [] EKG: EKG: Sinus rhythm 83 bpm, left axis deviation, right bundle branch block, QRS 128, QTC 505, no T wave inversions, no ST elevations or ST depressions Radiology/Procedures: Radiology/Procedures: IMAGING REPORT Signed PATIENT: JESSICA CEDENO MACCOUNT: [id number] : 1945 LOCATION: ER AGE: 75 SEX: F EXAM STATUS: PRE ER ORD. PHYSICIAN: KELSIE GREY DO REASON: hypotension, pna? PROCEDURE: PORTABLE CHEST 1V AP portable chest radiograph 10/19/2020 Clinical History: Hypotension. An AP erect portable digital radiograph of the chest was obtained. Comparison study is dated 08/24/2020. The cardiac silhouette is mildly enlarged. The thoracic aorta is tortuous. Atherosclerotic calcification thoracic aorta is seen. No pulmonary infiltrate is noted. No pneumothorax or pleural effusion is seen. A stent overlies the medial left arm, unchanged. Surgical clips overlie the right axilla. The osseous structures are unchanged. Impression: No acute abnormality is seen. Electronically signed by: Catarino Larios MD (10/27/2020 4:43 PM) [id number] DICTATED and SIGNED BY: CATARINO LARIOS MD DATE: 10/27/20 [id number] 0 Course & Med Decision Making: Course & Med Decision Making Pertinent Labs and Imaging studies reviewed. (See chart for details) Concern for syncope in the setting of hypotension after hemodialysis, pt with no complaints. EKG with no ischemia. Normal cxr-no fluid overload/infiltrate. Pt afebrile with no signs/sxs of sepsis or infection. Shared decision making between myself and daughter/Zhao. I offered admission for syncope workup. I made both pt/daughter aware that we had done a small workup in ed- no anemia, stemi, pneumonia or apparent signs of sepsis/shock. That there were other causes of syncope we had not evaluated for (aortic disease, electrolyte abnormalities, PE, etc) because pt had no complaints of chest/back/abdominal pain. That we could admit to pursue this workup. Daughter declined admission and agrees to return if pt should develop any of these concerning signs/sxs. Strict ED return precautions were given for syncope, strokelike symptoms, head injury, chest pain, abdominal or back pain or neurologic deficits. Encouraged urgent outpatient follow-up with PMD and cardiology. Life-threatening processes were considered but are low suspicion at this time, given history and physical exam. Pt was educated on all prescription medications and adverse effects. All patient's questions were answered and pt was stable at time of discharge. Life/limb-threatening differential includes but is not limited to, abdominal aortic aneurysm, aortic dissection, acute coronary syndrome, anemia, valvular disorder, cerebrovascular accident, drug overdose or toxidrome, arrhythmia, prolonged QT syndrome, hemorrhage, heat illness, intracranial hemorrhage, infection including meningitis/encephalitis/sepsis/toxic shock/myocarditis, vertebrobasilar insufficiency, seizure, medication adverse event, illicit drug use, electrolyte disorder I spoken with the patient and her caregivers. I explained the patient's condition, diagnoses and treatment plan based on the information available to me at this time. I have answered the patient and her caregiver's questions and addressed any concerns. The patient and her caregivers have a good understanding of patient's diagnosis, condition and treatment plan as can be expected at this point. Vital signs have been stable. Patient's condition is stable and appropriate for discharge from the emergency department. Patient will pursue further outpatient evaluation with primary care physician or other designated or consulting physician as outlined in the discharge instructions. The patient and/or caregivers are agreeable to this plan of care and follow-up instructions have been explained in detail. The patient and/or caregivers have received these instructions in written form and have expressed an understanding of the discharge instructions. The patient and/or caregivers are aware that any significant change of condition or worsening of symptoms should prompt immediate return to this or the closest emergency department or call to 1. Kota Disclaimer: Kota Disclaimer: This electronic medical record was generated, in whole or in part, using a voice recognition dictation system. Departure Departure Impression: Primary Impression: Syncope and collapse Disposition: 01 DC HOME SELF CARE/HOMELESS Condition: STABLE Referrals: EVER GARNER MD (PCP) Patient Instructions: Syncope Additional Instructions: FOLLOW UP WITH CARDIOLOGY: [facility] Address: [address] [place] [address] EMERGENCY DEPARTMENT GENERAL DISCHARGE INSTRUCTIONS Thank you for coming to [facility] Emergency Department (ED) to day and trusting us with you care. We trust that you had a positive experience in our Emergency Department. If you wish to speak to the department management, you may call the Director at [phone]. YOUR FOLLOW UP INSTRUCTIONS ARE FOLLOWS: 1. Do you have a private Doctor? If you do not have a private doctor, please ask for a resource list of physicians or clinics that may be able to assist you with follow up care. 2. The Emergency Physicain has interpreted your x-rays. The X-Ray specialist will also review them. If there is a change in the findings, you will be notified in 48 hours when at all possible. 3. A lab test or culture has been done, your results will be reviewed and you will be notified if you need a change in treatment. ADDITIONAL INSTRUCTIONS AND INFORMATION: 1. Your care today has been supervised by a physician who is specially trained in emergency care. Many problems require more than one evaluation for a complete diagnosis and treatment. We recommend that you schedule your follow up appointment as recommended to ensure complete treatment of you illness or injury. If you are unable to obtain follow up care and continue to have a problem, or if your condition worsens, we recommend that you return to the ED. 2. We are not able to safely determine your condition over the phone nor are we able to give sound medical advice over the phone. For these safety reasons, if you call for medical advice we will ask you to come to the ED for further evaluation. 3. If you have any questions regarding these discharge instructions please call the ED at [phone]. SAFETY INFORMATION: In the interest of safety, wellness, and injury prevention; we encourage you to wear your sealbelt, if you smoke; quite smoking, and we encourage family to use a protective helmet for bicycling and other sporting events that present an increased risk for head injury. IF YOUR SYMPTOMS WORSEN OR NEW SYMPTOMS DEVELOP, OR YOU HAVE CONCERNS ABOUT YOUR CONDITION; OR IF YOUR CONDITION WORSENS WHILE YOU ARE WAITING FOR YOUR FOLLOW UP APPOINTMENT; EITHER CONTACT YOUR PRIMARY CARE DOCTOR, THE PHYSICIAN WHOSE NAME AND NUMBER YOU WERE GIVEN, OR RETURN TO THE ED IMMEDIATELY. [facility] DO Oct 27, 2020 16:14
--- NOTE | 2020-10-27 16:46 | RAD ---
AP portable chest radiograph 10/19/2020 Clinical History: Hypotension. An AP erect portable digital radiograph of the chest was obtained. Comparison study is dated 08/24/2020. The cardiac silhouette is mildly enlarged. The thoracic aorta is tortuous. Atherosclerotic calcification thoracic aorta is seen. No pulmonary infiltrate is noted. No pneumothorax or pleural effusion is seen. A stent overlies the medial left arm, unchanged. Surgical clips overlie the right axilla. The osseous structures are unchanged. Impression: No acute abnormality is seen. Electronically signed by: Catarino Larios MD (10/27/2020 4:43 PM) [id number]
[2020-10-27 17:13] LABS: BASO % 0 % (0-3); EOS # 0.1 x10^3/uL (0.0-0.7); EOS % 2 % (0-3); HEMATOCRIT 32.6 % (36.0-47.0); HEMOGLOBIN 10.5 g/dL (12.0-15.5); LYMPH # 0.8 x10^3/uL (1.0-4.8); LYMPH % 13 % (24-48); MEAN CORPUSCULAR HEMOGLOBIN 35 pg (25-35); MEAN CORPUSCULAR HGB CONC 32 g/dL (31-37); MEAN CORPUSCULAR VOLUME 110 fL (79-100); MONO # 0.2 x10^3/uL (0.0-1.1); MONO % 4 % (0-9); NEUT # 5.1 x10^3/uL (1.8-7.7); NEUT % 81 % (31-73); PLATELET COUNT 298 x10^3/uL (140-400); RED BLOOD COUNT 2.97 x10^6/uL (3.50-5.40); RED CELL DISTRIBUTION WIDTH 17.3 % (11.5-14.5); WHITE BLOOD COUNT 6.2 x10^3/uL (4.0-11.0)
[2020-10-27 18:02] VITALS: BP 163/69
--- NOTE | 2020-10-29 07:47 | EKG ---
[facility] [address] [place] [address] Test Date: 2020-10-27 Test Time: 16:25:07 Pat Name: JESSICA CEDENO Department: Room: Gender: F Dental Technician: : 1945 Requested By: KELSIE GREY Order Number: [id number] Reading MD: Elvin Hunt Measurements Intervals Casey Rate: 83 P: 26 RI: 118 QRS: -24 QRSD: 128 T: 34 QT: 424 QTc: 505 Interpretive Statements SINUS RHYTHM LEFTWARD AXIS RIGHT BUNDLE BRANCH BLOCK ABNORMAL ECG Electronically Signed On 10-30-2020 10:49:43 [employer] by Elvin Hunt
== END 2020-10-27 18:35 | disposition home or self-care (01) ==
LOC: ER 15:54
DX: R55 Syncope and collapse (principal); E03.9 Hypothyroidism, unspecified; F03.90 Unspecified dementia, unspecified severity, without behavioral disturbance, psychotic disturbance, mood disturbance, and anxiety; I12.0 Hypertensive chronic kidney disease with stage 5 chronic kidney disease or end stage renal disease; E11.22 Type 2 diabetes mellitus with diabetic chronic kidney disease; N18.6 End stage renal disease; Z87.891 Personal history of nicotine dependence; Z90.49 Acquired absence of other specified parts of digestive tract; Z90.710 Acquired absence of both cervix and uterus; Z88.0 Allergy status to penicillin; Z88.2 Allergy status to sulfonamides; Z88.8 Allergy status to other drugs, medicaments and biological substances
CPT/HCPCS: 36415; 71045; 83690; 84484; 85025; 93005; 99285

== ENCOUNTER 2020-12-01 12:27 | Emergency (ER) | payer BC, MEDICARE ==
[~2020-12-01] VITALS: Ht 162.6 cm; Wt 68.0 kg
[2020-12-01 12:40] VITALS: BP 106/54
[2020-12-01 14:06] LABS: BASO % 1 % (0-3); EOS # 0.1 x10^3/uL (0.0-0.7); EOS % 2 % (0-3); HEMATOCRIT 26.6 % (36.0-47.0); HEMOGLOBIN 8.6 g/dL (12.0-15.5); LYMPH # 1.2 x10^3/uL (1.0-4.8); LYMPH % 17 % (24-48); MEAN CORPUSCULAR HEMOGLOBIN 36 pg (25-35); MEAN CORPUSCULAR HGB CONC 33 g/dL (31-37); MEAN CORPUSCULAR VOLUME 111 fL (79-100); MONO # 0.6 x10^3/uL (0.0-1.1); MONO % 9 % (0-9); NEUT % 72 % (31-73); PLATELET COUNT 235 x10^3/uL (140-400); RED BLOOD COUNT 2.39 x10^6/uL (3.50-5.40); RED CELL DISTRIBUTION WIDTH 20.3 % (11.5-14.5); WHITE BLOOD COUNT 6.9 x10^3/uL (4.0-11.0)
[2020-12-01 14:08] LABS: CALCIUM 8.7 mg/dL (8.5-10.1); CREATININE 5.7 mg/dL (0.6-1.0); GFR 8.8; POTASSIUM 4.7 mmol/L (3.5-5.1)
[2020-12-01 14:14] LABS: ALBUMIN 2.4 g/dL (3.4-5.0); ALBUMIN/GLOBULIN RATIO 0.8 (1.0-1.7); MAGNESIUM 2.1 mg/dL (1.8-2.4); TOTAL BILIRUBIN 0.5 mg/dL (0.2-1.0); TOTAL PROTEIN 5.6 g/dL (6.4-8.2)
--- NOTE | 2020-12-01 14:51 | RAD ---
EXAM: Head CT without contrast. HISTORY: Confusion. TECHNIQUE: Computed tomographic images of the head were obtained without contrast. *One or more of the following individualized dose reduction techniques were utilized for this examina tion: 1. Automated exposure control. 2. Adjustment of the mA and/or kV according to patient size. 3. Use of iterative reconstruction technique. COMPARISON: 11/17/2020. FINDINGS: There is no acute or subacute extra-axial or intraparenchymal hemorrhage. There is no mass effect or midline shift. There is no hydrocephalus. There is stable hypodensity within the right middle cerebral artery distribution due to suspected chr onic infarction. There are subtle areas of hypodensity within the cerebral white matter, likely due t o chronic small vessel disease. There is cerebral and cerebellar volume loss. There is evidence of lens surgery. There is a small osteoma along the outer cortex of the left fronta l bone. There is a small spiculated sebaceous cyst within the right parietal scalp. IMPRESSION: 1. No acute intracranial finding. Note is made that MRI is more sensitive for acute infarction. 2. Stable encephalomalacia likely due to chronic infarction within the right middle cerebral artery d istribution. 3. Bilateral cerebral white matter changes, likely due to chronic small vessel disease. Electronically signed by: Ximena Mims MD (12/01/2020 2:49 PM) [facility]
--- NOTE | 2020-12-01 15:47 | PHYS DOC ---
Past Medical History Past Medical History: Dementia, Diabetes-Type II, Hypertension, Hypothyroid, Renal Failure, Other Additional Past Medical Histor: LEUKEMIA/ET Past Surgical History: Cholecystectomy, Hysterectomy, Other Additional Past Surgical Histo: THYROIDECTOMY, Left arm shunt-dont use, Right arm shunt Smoking Status: Former Smoker Alcohol Use: None Drug Use: None General Adult EDM: Chief Complaint: ALTERED MENTAL STATUS HPI: HPI: Patient is a 75 year old female with history of dementia, end-stage renal failure, diabetic, hypotension was brought here from dialysis center due to confusion and low blood pressure. Patient was taken from the senior care to the dialysis center for dialysis today, when she got there she was acting confused and when they checked her blood pressure, was 75/40. Therefore they called EMS to send her here for evaluation. However when EMS got there her blood pressure was 105/60, patient was awake and alert, denies any chest pain, no abdominal pain, no nausea vomiting, no acute trouble breathing, no cough, no fever. Her daughter said her blood pressure was low by history. Her last hemodialysis was on . Review of Systems: Review of Systems: Constitutional: Denies fever or chills. [] Eyes: Denies change in visual acuity. [] HENT: Denies nasal congestion or sore throat. [] Respiratory: Denies cough or shortness of breath. [] Cardiovascular: Denies chest pain or edema. [] GI: Denies abdominal pain, nausea, vomiting, bloody stools or diarrhea. [] : Denies dysuria. [] Musculoskeletal: Denies back pain or joint pain. [] Integument: Denies rash. [] Neurologic: Denies headache, focal weakness or sensory changes. [] Endocrine: Denies polyuria or polydipsia. [] Lymphatic: Denies swollen glands. [] Psychiatric: Denies depression or anxiety. [] Heart Score: Risk Factors: Risk Factors: DM, Current or recent (<one month) smoker, HTN, HLP, family history of CAD, obesity. Risk Scores: Score 0 - 3: 2.5% MACE over next 6 weeks - Discharge Home Score 4 - 6: 20.3% MACE over next 6 weeks - Admit for Clinical Observation Score 7 - 10: 72.7% MACE over next 6 weeks - Early Invasive Strategies Allergies: Allergies: Allergies Coded Allergies Type Severity Reaction Last Updated Verified Penicillins Allergy Intermediate SEVERE ITCHING-NO HIVES 02/22/17 Yes Sulfa (Sulfonamide Antibiotics) Allergy Intermediate 08/25/16 Yes Uncoded Allergies Type Severity Reaction Last Updated Verified surgical silvia Allergy Intermediate Rash 10/14/15 Physical Exam: PE: Constitutional: Well developed, well nourished, no acute distress, non-toxic appearance. [] HENT: Normocephalic, atraumatic, bilateral external ears normal, oropharynx moist, no oral exudates, nose normal. [] Eyes: PERRLA, EOMI, conjunctiva normal, no discharge. [] Neck: Normal range of motion, no tenderness, supple, no stridor. [] Cardiovascular:Heart rate regular rhythm, no murmur [] Lungs & Thorax: Bilateral breath sounds clear to auscultation [] Abdomen: Bowel sounds normal, soft, no tenderness, no masses, no pulsatile masses. [] Skin: Warm, dry, no erythema, no rash. [] Back: No tenderness, no CVA tenderness. [] Extremities: No tenderness, no cyanosis, no clubbing, ROM intact, no edema. [] Neurologic: Alert and oriented X 3, normal motor function, normal sensory function, no focal deficits noted. [] Psychologic: Affect normal, judgement normal, mood normal. [] Current Patient Data: Labs: Laboratory Tests Test 12/01/20 13:40 White Blood Count 6.9 x10^3/uL (4.0-11.0) Red Blood Count 2.39 x10^6/uL (3.50-5.40) L Hemoglobin 8.6 g/dL (12.0-15.5) L Hematocrit 26.6 % (36.0-47.0) L Mean Corpuscular Volume 111 fL (79-100) H Mean Corpuscular Hemoglobin 36 pg (25-35) H Mean Corpuscular Hemoglobin Concent 33 g/dL (31-37) Red Cell Distribution Width 20.3 % (11.5-14.5) H Platelet Count 235 x10^3/uL (140-400) Neutrophils (%) (Auto) 72 % (31-73) Lymphocytes (%) (Auto) 17 % (24-48) L Monocytes (%) (Auto) 9 % (0-9) Eosinophils (%) (Auto) 2 % (0-3) Basophils (%) (Auto) 1 % (0-3) Neutrophils # (Auto) 5.0 x10^3/uL (1.8-7.7) Lymphocytes # (Auto) 1.2 x10^3/uL (1.0-4.8) Monocytes # (Auto) 0.6 x10^3/uL (0.0-1.1) Eosinophils # (Auto) 0.1 x10^3/uL (0.0-0.7) Basophils # (Auto) 0.0 x10^3/uL (0.0-0.2) Sodium Level 138 mmol/L (136-145) Potassium Level 4.7 mmol/L (3.5-5.1) Chloride Level 102 mmol/L (98-107) Carbon Dioxide Level 30 mmol/L (21-32) Anion Gap 6 (6-14) Blood Urea Nitrogen 15 mg/dL (7-20) Creatinine 5.7 mg/dL (0.6-1.0) H Estimated GFR (Cockcroft-Gault) 8.8 BUN/Creatinine Ratio 3 (6-20) L Glucose Level 95 mg/dL (70-99) Calcium Level 8.7 mg/dL (8.5-10.1) Magnesium Level 2.1 mg/dL (1.8-2.4) Total Bilirubin 0.5 mg/dL (0.2-1.0) Aspartate Amino Transferase (AST) 37 U/L (15-37) Alanine Aminotransferase (ALT) 22 U/L (14-59) Alkaline Phosphatase 77 U/L (46-116) Total Protein 5.6 g/dL (6.4-8.2) L Albumin 2.4 g/dL (3.4-5.0) L Albumin/Globulin Ratio 0.8 (1.0-1.7) L Laboratory Tests 12/01/20 13:40 Laboratory Tests 12/01/20 13:40 Vital Signs: Vital Signs Date Time Temp Pulse Resp B/P (MAP) Pulse Ox O2 Delivery O2 Flow Rate FiO2 12/01/20 12:40 98.8 68 16 106/54 (71) 92 Room Air 98.8 EKG: EKG: [] Radiology/Procedures: Radiology/Procedures: [][facility] [address] [place] [address] IMAGING REPORT Signed PATIENT: JESSICA CEDENO MACCOUNT: [id number] : 1945 LOCATION: ER AGE: 75 SEX: F EXAM STATUS: REG ER ORD. PHYSICIAN: BISHOP SUAREZ DO REASON: confusion PROCEDURE: CT HEAD WO CONTRAST EXAM: Head CT without contrast. HISTORY: Confusion. TECHNIQUE: Computed tomographic images of the head were obtained without contrast. *One or more of the following individualized dose reduction techniques were utilized for this examination: 1. Automated exposure control. 2. Adjustment of the mA and/or kV according to patient size. 3. Use of iterative reconstruction technique. COMPARISON: 11/17/2020. FINDINGS: There is no acute or subacute extra-axial or intraparenchymal hemorrhage. There is no mass effect or midline shift. There is no hydrocephalus. There is stable hypodensity within the right middle cerebral artery distribution due to suspected chronic infarction. There are subtle areas of hypodensity within the cerebral white matter, likely due to chronic small vessel disease. There is cerebral and cerebellar volume loss. There is evidence of lens surgery. There is a small osteoma along the outer cortex of the left frontal bone. There is a small spiculated sebaceous cyst within the right parietal scalp. IMPRESSION: 1. No acute intracranial finding. Note is made that MRI is more sensitive for acute infarction. 2. Stable encephalomalacia likely due to chronic infarction within the right middle cerebral artery distribution. 3. Bilateral cerebral white matter changes, likely due to chronic small vessel disease. Electronically signed by: Ximena Lincoln MD (12/01/2020 2:49 PM) [facility] DICTATED and SIGNED BY: XIMENA LINCOLN MD DATE: 12/01/20 [id number] 0 Course & Med Decision Making: Course & Med Decision Making Pertinent Labs and Imaging studies reviewed. (See chart for details) Patient was awake, alert, oriented to person and place in the ER. Her blood pressure has been stabilized around 125/65. She does not need urgent hemodialysis. Her daughter is here who confirmed that patient has history of hypotension. Will send her back to the [facility]. She will need to make up her dialysis tomorrow or the next day. Kota Disclaimer: Kota Disclaimer: This electronic medical record was generated, in whole or in part, using a voice recognition dictation system. Departure Departure Impression: Primary Impression: Dementia Additional Impression: Altered mental status Disposition: 01 DC HOME SELF CARE/HOMELESS Condition: IMPROVED Referrals: EVER GARNER MD (PCP) Patient Instructions: Altered Mental Status, Dementia Additional Instructions: Thank you for visiting our Emergency Department. We appreciate you trusting us with your care. If any additional problems come up don't hesitate to return to visit us. Please follow up with your primary care provider so they can plan additional care if needed and know about the problem that you had. If symptoms worsen come back to the Emergency Department. Any concerning symptoms that start such as chest pain, shortness of air, weakness or numbness on one side of the body, running high fevers or any other concerning symptoms return to the ER. BISHOP SUAREZ DO Dec 01, 2020 15:47
== END 2020-12-01 16:00 | disposition home or self-care (01) ==
LOC: ER 12:27
DX: F03.90 Unspecified dementia, unspecified severity, without behavioral disturbance, psychotic disturbance, mood disturbance, and anxiety (principal); R41.82 Altered mental status, unspecified; E03.9 Hypothyroidism, unspecified; E11.22 Type 2 diabetes mellitus with diabetic chronic kidney disease; I12.0 Hypertensive chronic kidney disease with stage 5 chronic kidney disease or end stage renal disease; N18.6 End stage renal disease; Z99.2 Dependence on renal dialysis; Z87.891 Personal history of nicotine dependence; Z88.0 Allergy status to penicillin; Z88.2 Allergy status to sulfonamides; Z88.8 Allergy status to other drugs, medicaments and biological substances
CPT/HCPCS: 36415; 70450; 80053; 83735; 85025; 99284